=== PATIENT | female | born 1970 | race Two or more races ===

== ENCOUNTER 2020-09-27 11:10 | Outpatient (REF) | payer OTHER, SELFPAY | END 2020-09-27 11:11 | disposition home or self-care (01) | LOC: HO.LAB 11:10 | PROVIDERS: Visit Provider Internal Medicine | DX: Z20.828 Contact with and (suspected) exposure to other viral communicable diseases (principal) | CPT/HCPCS: 87635 ==

== ENCOUNTER 2020-10-13 12:46 | Outpatient (REF) | payer OTHER, SELFPAY | END 2020-10-13 12:47 | disposition home or self-care (01) | LOC: HO.LAB 12:46 | PROVIDERS: Visit Provider Internal Medicine | DX: Z20.828 Contact with and (suspected) exposure to other viral communicable diseases (principal) | CPT/HCPCS: C9803; U0003 ==

== ENCOUNTER 2021-03-08 12:50 | Outpatient (REF) | payer OTHER, SELFPAY ==
[2021-03-08 13:13] LABS: COVID-19 Test Negative (Negative); IDNOW Serial# 08D9AD1C
== END 2021-03-08 12:51 | disposition home or self-care (01) ==
LOC: HO.LAB 12:50
PROVIDERS: Visit Provider Internal Medicine
DX: Z20.822 Contact with and (suspected) exposure to COVID-19 (principal)
CPT/HCPCS: 36415; 87635; C9803

== ENCOUNTER 2022-09-14 08:45 | Outpatient (REF) | payer OTHER, SELFPAY ==
--- NOTE | ~2022-09-14 | XR_ITS ---
EXAMINATION: XR LUMBOSACRAL SPINE WITH OBLIQUES CLINICAL INFORMATION: Low back pain COMPARISON: None TECHNIQUE: AP, both oblique, and lateral views of the lumbar spine. Lateral view of the lumbosacral junction. FINDINGS: There is normal lumbar lordosis. The vertebral heights, alignment and disc heights are normal. No visible acute fracture, dislocation or lytic process seen. There is mild left lateral spondylosis L3-L4 disc level and minimal ventral spondylosis. No acute fracture, lytic or sclerotic process seen. The SI joints are symmetrical and normal. 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 XR/XR lumbar spine 4V min IMPRESSION: 1. Mild left lateral spondylosis L3-L4 disc level and mild ventral spondylosis throughout lumbar spine. No visible acute fracture, dislocation or lytic process seen. 2. 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
[2022-09-14 11:25] LABS: MANUAL DIFF FLAG NO
[2022-09-14 11:43] LABS: Basophils Absolute Auto 0.1 X10*3/uL (0.0-0.2); Basophils Percent Auto 0.9 % (0-2); Eosinophils Absolute Auto 0.1 X10*3/uL (0.0-0.4); Eosinophils Percent Auto 1.4 % (0-4); Hematocrit 40.5 % (37.0-47.0); Hemoglobin 13.4 g/dl (12.0-16.0); Imm Gran Abs Auto 0.01 X10*3/uL (0.00-0.03); Imm Gran Pct Auto 0.2 % (0.0-0.4); Lymphocytes Absolute Auto 1.7 X10*3/uL (1.2-4.9); Lymphocytes Percent Auto 29.2 % (20-40); Mean Corpuscular HGB Conc 33.1 g/dl (31.0-35.0); Mean Corpuscular Hemoglobin 29.6 pg (27.0-33.0); Mean Corpuscular Volume 89.4 fL (80.0-98.0); Mean Platelet Volume 10.8 fL (9.4-12.3); Monocytes Absolute Auto 0.4 X10*3/uL (0.1-1.2); Monocytes Percent Auto 6.8 % (2-11); Neutrophils Absolute Auto 3.5 x10*3/uL (2.0-8.3); Neutrophils Percent Auto 61.5 % (45-73); Platelet Count 255 X10*3/uL (160-400); Red Blood Count 4.53 X10*6/uL (4.20-5.50); Red Cell Distribution Width 13.1 % (11.0-16.0); White Blood Count 5.8 X10*3/uL (4.8-10.8)
[2022-09-14 12:22] LABS: Alanine Aminotransferase 19 U/L (0-31); Albumin Level 4.5 g/dL (3.5-5.0); Alkaline Phosphatase 71 U/L (39-117); Anion Gap 14 (12-20); Aspartate Amino Transferase 23 U/L (5-31); Bilirubin Total 1.5 mg/dL (0.0-1.0); Blood Urea Nitrogen 19 mg/dL (9-16); Calcium 9.5 mg/dL (8.4-10.2); Carbon Dioxide 26 mmol/L (22-29); Chloride 104 mmol/L (96-108); Cholesterol 258 mg/dL; Estimated Glomerular Filt Rate > 60; Glucose Fasting 119 mg/dL (60-99); HDL Cholesterol 59 mg/dL; LDL Cholesterol Calculated 173 mg/dl; Potassium 4.1 mmol/L (3.3-5.1); Sodium 140 mmol/L (135-145); Total Protein 7.4 g/dL (6.5-8.0); Triglycerides 132 mg/dL
[2022-09-14 12:23] LABS: Vitamin D 25-OH Total 37.6 ng/mL (>30)
[2022-09-14 12:29] LABS: Folate 17.2 ng/mL (> or = 4.0); Vitamin B12 935 pg/mL (200-900)
== END 2022-09-14 08:46 | disposition home or self-care (01) ==
LOC: HO.HMGCLDS 08:45
PROVIDERS: PCP Nurse Practitioner Family; Visit Provider Nurse Practitioner Family
DX: M54.50 Low back pain, unspecified (principal); Z76.89 Persons encountering health services in other specified circumstances
CPT/HCPCS: 36415; 72110; 80053; 80061; 82306; 82607; 82746; 84443; 85025

== ENCOUNTER 2022-10-22 16:00 | Outpatient (RCR) | payer OTHER, SELFPAY ==
--- NOTE | 2022-10-15 15:24 | MHC.PT.EP ---
[facility] [place] Office [place] Office [place] Office [address] Nelda Moser [address] [phone] F: [phone] F: [phone] F: [phone] F: [phone] Physical Therapy Plan of Care Date of Evaluation: Date of Surgery: Diagnosis: Low back pain Assessment: Patient is 52 y.o female who is referred by MYRIAM Sandoval, to PT with Dx of LBP. She presents as chronic LBP with sprain/strain and weak core/abdominals due to abdominal surgery and prolonged use of abdominal brace/binder. 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 She will benefit from skilled and monitored PT to restore aforementioned impairments. Frequency and Duration: The patient will be seen 2x/week for 4 weeks Short Term Goals: 2 weeks Patient is able to demonstrate consistency and independence with HEP to self manage chronic symptoms Patient is able to progress more core/TA strengthening progressions in supine, seated, quadruped and standing to improve endurance at work to discontinue use of abdominal brace/binder. Cma Goals: 4 weeks Patient presents with increased lumbar flexion 90 degrees to restore mobility with bending at work. Patient presents with increased hip flexion strength 5/5 to be able to perform squats for work tasks. Treatment Plan: Modalities to reduce pain, spasms and effusion. Manual therapy to restore motion and function. Therapeutic exercise to improve strength and flexibility. Neuromuscular re-education for posture and balance. Therapeutic activities to return to functional activities of daily living. Electronically signed by: Otto Serna, PT, DPT Please sign and return to therapist. Thank you for your referral.
--- NOTE | 2022-11-29 11:38 | MHC.PT.DC ---
[facility] [place] Office [place] Office [place] Office [address] Nelda Moser [address] [phone] F: [phone] F: [phone] F: [phone] F: [phone] Physical Therapy Discharge Report Diagnosis: Low back pain Date of Surgery: Date of Evaluation: 10/15/22 Date of Discharge: 11/29/22 Treatments to Date: 2 Cancellations to Date: 4 No Shows to Date: 2 Discharge Status: Visit Non-compliance Discharge Summary: Patient ceased attending visits on her own accord as of 10/22/22. Therefore she is discharged from PT at this time. Electronically signed by: Otto Serna, PT, DPT Please sign and return to therapist. Thank you for your referral.
== END 2022-11-29 11:39 | disposition home or self-care (01) ==
LOC: HO.PTCHIC 16:00
PROVIDERS: PCP Nurse Practitioner Family; Visit Provider Nurse Practitioner Family
DX: M54.50 Low back pain, unspecified (principal)
CPT/HCPCS: 97110; 97161

== ENCOUNTER 2022-11-27 14:55 | Outpatient (REF) | payer OTHER, SELFPAY ==
[2022-11-27 15:42] LABS: MANUAL DIFF FLAG NO
[2022-11-27 16:22] LABS: Basophils Absolute Auto 0.1 X10*3/uL (0.0-0.2); Basophils Percent Auto 0.9 % (0-2); Eosinophils Absolute Auto 0.1 X10*3/uL (0.0-0.4); Eosinophils Percent Auto 1.2 % (0-4); Hematocrit 39.4 % (37.0-47.0); Hemoglobin 12.9 g/dl (12.0-16.0); Imm Gran Abs Auto 0.01 X10*3/uL (0.00-0.03); Imm Gran Pct Auto 0.2 % (0.0-0.4); Lymphocytes Absolute Auto 2.4 X10*3/uL (1.2-4.9); Lymphocytes Percent Auto 35.8 % (20-40); Mean Corpuscular HGB Conc 32.7 g/dl (31.0-35.0); Mean Corpuscular Hemoglobin 29.6 pg (27.0-33.0); Mean Corpuscular Volume 90.4 fL (80.0-98.0); Mean Platelet Volume 10.8 fL (9.4-12.3); Monocytes Absolute Auto 0.5 X10*3/uL (0.1-1.2); Monocytes Percent Auto 7.6 % (2-11); Neutrophils Absolute Auto 3.6 x10*3/uL (2.0-8.3); Neutrophils Percent Auto 54.3 % (45-73); Platelet Count 255 X10*3/uL (160-400); Red Blood Count 4.36 X10*6/uL (4.20-5.50); Red Cell Distribution Width 13.1 % (11.0-16.0); White Blood Count 6.6 X10*3/uL (4.8-10.8)
[2022-11-27 16:42] LABS: Estimated Average Glucose 111 mg/dL; Hemoglobin A1c % 5.5 %
[2022-11-27 16:49] LABS: Alanine Aminotransferase 14 U/L (0-31); Albumin Level 4.2 g/dL (3.5-5.0); Alkaline Phosphatase 73 U/L (39-117); Anion Gap 9 (12-20); Aspartate Amino Transferase 15 U/L (5-31); Bilirubin Total 1.1 mg/dL (0.0-1.0); Blood Urea Nitrogen 11 mg/dL (9-16); Calcium 9.4 mg/dL (8.4-10.2); Carbon Dioxide 32 mmol/L (22-29); Chloride 105 mmol/L (96-108); Estimated Glomerular Filt Rate > 60; Glucose Random 109 mg/dL (60-115); Potassium 4.3 mmol/L (3.3-5.1); Sodium 142 mmol/L (135-145); Total Protein 6.9 g/dL (6.5-8.0)
== END 2022-11-27 14:56 | disposition home or self-care (01) ==
LOC: HO.LAB 14:55
PROVIDERS: PCP Nurse Practitioner Family; Visit Provider Surgery
DX: K46.9 Unspecified abdominal hernia without obstruction or gangrene (principal); E66.3 Overweight; R73.01 Impaired fasting glucose
CPT/HCPCS: 36415; 80053; 83036; 84134; 85025; 99202

== ENCOUNTER 2022-12-10 16:20 | Outpatient (REF) | payer OTHER, SELFPAY ==
--- NOTE | ~2022-12-10 | CT_ITS ---
EXAMINATION: CT ABDOMEN AND PELVIS WITHOUT CONTRAST CLINICAL INFORMATION: Unspecified abdominal hernia without obstruction or gangrene COMPARISON: None. TECHNIQUE: Multidetector volumetric imaging was performed from the lung bases through the pubic symphysis. Sagittal and coronal reformatted images were obtained on the technologist workstation. This CT examination was performed using dose optimization techniques as appropriate, variously including the following: *Automated exposure control *Adjustment of mA and/or kV according to patient size (this includes techniques or standardized protocols for targeted exams where dose is matched to indication/reason for exam; i.e. extremities or head) *Use of iterative reconstruction technique FINDINGS: The lack of intravenous contrast limits evaluation of the solid visceral organs including the liver, spleen, pancreas, and kidneys. LUNG BASES: The visualized lung bases are unremarkable. LIVER, GALLBLADDER, AND BILIARY TREE: Limited non-contrast evaluation is normal. No gross focal hepatic lesion. Normal liver size and contour. No gross biliary ductal dilation. Status post cholecystectomy. PANCREAS: Limited non-contrast evaluation is normal. No shelly-pancreatic fluid. SPLEEN: Limited non-contrast evaluation is normal. ADRENAL GLANDS: Normal; no adrenal mass. KIDNEYS AND URETERS: Limited non-contrast evaluation is normal. No hydronephrosis, hydroureter, or calculi seen. No perinephric stranding. GASTROINTESTINAL TRACT: Small bowel and colon are non-dilated. No bowel wall thickening. No pericolonic inflammatory changes to suggest colitis or diverticulitis. ABDOMINAL WALL: No hernia seen. LYMPH NODES: No pathologically enlarged lymph nodes in the abdomen or pelvis. VASCULAR: Normal caliber abdominal aorta. BLADDER: Unremarkable. PELVIC VISCERA: Normal noncontrast appearance of the uterus and ovaries. OSSEOUS STRUCTURES: No acute or suspicious osseous abnormalities. CT/CT abdomen pelvis wo IV con IMPRESSION: No acute CT findings. No evidence of bowel obstruction.
== END 2022-12-10 16:21 | disposition home or self-care (01) ==
LOC: HO.CT 16:20
PROVIDERS: PCP Nurse Practitioner Family; Visit Provider Surgery
DX: K46.9 Unspecified abdominal hernia without obstruction or gangrene (principal); E66.3 Overweight; R73.01 Impaired fasting glucose
CPT/HCPCS: 74176

== ENCOUNTER → 2022-12-25 10:10 | Outpatient (BNVA) | payer OTHER, SELFPAY | PROVIDERS: Visit Provider Surgery | DX: K43.2 Incisional hernia without obstruction or gangrene (principal); E78.5 Hyperlipidemia, unspecified | CPT/HCPCS: 99212 ==

== ENCOUNTER → 2023-01-15 10:15 | Outpatient (BNVA) | payer OTHER, SELFPAY | PROVIDERS: PCP Nurse Practitioner Family; Visit Provider Surgery | DX: K43.2 Incisional hernia without obstruction or gangrene (principal); K46.9 Unspecified abdominal hernia without obstruction or gangrene; E66.3 Overweight; E78.5 Hyperlipidemia, unspecified; Z98.890 Other specified postprocedural states; Z68.28 Body mass index [BMI] 28.0-28.9, adult | CPT/HCPCS: 99212 ==

== ENCOUNTER 2023-02-14 06:37 | Day surgery (SDC) | payer OTHER, SELFPAY ==
[2023-02-08 14:12] VITALS: BMI 28.0
--- NOTE | 2023-02-13 09:22 | HO.ANESPROP2 ---
Documented by User: Jeanne Lovett NP 02/13/23 09:28 HPI - Anesthesia Eval Consult details Narrative: 52yo F for Hernia Repair Ventral Laparoscopic with mesh PMFSH Active Problems Active Problems: All Active Problems (Updated 02/08/23 @ 13:53 by Brittanie Granados, BIBI) Lower back pain (Acute) Tendinitis (Acute) Migraines (Acute) Hyperbilirubinemia (Acute) Elevated fasting glucose (Acute) Hyperlipidemia (Acute) Adult general medical exam (Acute) Abdominal hernia (Acute) Overweight (Acute) Screening for breast cancer (Acute) Incisional hernia (Acute) H/O abdominal surgery (Acute) Past Medical History Medical History Back pain Elevated cholesterol Encounter to establish care Migraine Obesity Family History Family History Mother No problems noted. 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 Cognitive needs: No Hearing needs: No Vision needs: Yes (glasses ) Meds Allergies Allergy/AdvReac Type Severity Reaction Status Date / Time No Known Allergies Allergy Verified 01/15/23 10:31 Home Medications Medication Instructions Recorded Confirmed Last Taken Type acetaminophen 325 mg tablet 650 mg PO Q6H PRN 09/12/22 01/15/23 Unknown History (Tylenol) Exam Exam Date and Time: February 13, 2023 0922 Height,Weight and Vital Signs: Height 5 ft 2 in Weight 69.672 kg Pertinent Lab Results Pertinent Lab Results: Laboratory Tests 11/27/22 11/27/22 15:38 15:38 WBC 6.6 Hgb 12.9 Hct 39.4 Plt Count 255 Sodium 142 Potassium 4.3 Chloride 105 Carbon Dioxide 32 H BUN 11 Creatinine 0.78 Assessment and Plan Assessment Anesthesia Assessment: Chart Reviewed Documented by User: Jerome Mccabe MD 02/14/23 11:03 PMFSH Past Medical History Medical History Back pain Elevated cholesterol Encounter to establish care Migraine Obesity Family History Family History Mother No problems noted. 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 Cognitive needs: No Hearing needs: No Vision needs: Yes (glasses ) Meds Allergies Allergy/AdvReac Type Severity Reaction Status Date / Time No Known Allergies Allergy Verified 01/15/23 10:31 Home Medications Medication Instructions Recorded Confirmed Last Taken Type acetaminophen 325 mg tablet 650 mg PO Q6H PRN 09/12/22 01/15/23 Unknown History (Tylenol) Exam Airway Mallampati Class: II TM Dist: >3cm Neck ROM: Full Loose/Missing/Broken Teeth: No Heart: ok Lungs: ok Assessment and Plan Assessment Anesthesia Assessment: Anesthesia Plan Discussed Final Anesthetic Review Family History of Problems with Anesthesia: No History of Problems with Anesthesia: No NPO: Yes ASA Class: II Final Preanesthetic Review: No Changes in Pt Med Stat, Meds/Allgs Chart Reviewed, Consent Obtained/Reviewed and Anes Risks/Benef Reviewed Patient Risk: Low Procedure Risk: Intermediate Anesthetic Plan Anesthetic Plan: GA and Agree w/ Assess. and Plan Disposition: Standard PACU
[2023-02-14] VITALS (19 sets, daily range): BP systolic 108–127; BP diastolic 59–74; PULSE 60–85; RESP 12–18; TEMP 36.3–37; O2SAT 89–100
[2023-02-14] MEDS: Lactated Ringers 1,000 ML 100 ML IVCONT (07:41)
--- NOTE | 2023-02-14 08:05 | PC.NURSE ---
IV attempt by author. Insertion by sea trammell rn
--- NOTE | 2023-02-14 08:12 | MHC.SHP ---
Pre-Procedural Eval Section A Date of Service: 02/14/23 The patient is an INPATIENT: No The History & Physical has been completed within 30 days and I have reviewed it.: Yes Section B Chief Complaint: Incisional hernia without obstruction or gangrene Allergies: Allergies Allergy/AdvReac Type Severity Reaction Status Date / Time No Known Allergies Allergy Verified 01/15/23 10:31 Plan I have reviewed the history and physical and performed a pertinent physical examination on my patient. No changes have occurred unless specified. Time Spent With Patient Time: Total time managing care of this patient today ____ minutes.
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
[2023-02-14] MEDS: fentaNYL citrate/PF 100 MCG/2 ML VIAL 50 MCG IVPUSH ×4 (10:57→11:25)
[2023-02-14] MEDS: oxyCODONE HCl Immed Release 5 MG TABLET 10 MG PO (11:12)
[2023-02-14] MEDS: Acetaminophen 325 MG TABLET 650 MG PO (11:23)
[2023-02-14] MEDS: ondansetron HCL 4 MG/2 ML VIAL IVPUSH (12:32)
== END 2023-02-14 14:43 | disposition home or self-care (01) ==
PROVIDERS: PCP Nurse Practitioner Family; Visit Provider Surgery
PROC: 0WQF4ZZ Repair Abdominal Wall, Percutaneous Endoscopic Approach (ICD-10-PCS; CPT 49593; principal; 2023-02-14 08:30)
DX: K43.2 Incisional hernia without obstruction or gangrene (principal); K46.9 Unspecified abdominal hernia without obstruction or gangrene; K66.0 Peritoneal adhesions (postprocedural) (postinfection); M54.9 Dorsalgia, unspecified; E78.5 Hyperlipidemia, unspecified; E66.3 Overweight; Z68.28 Body mass index [BMI] 28.0-28.9, adult; Z90.49 Acquired absence of other specified parts of digestive tract; Z98.890 Other specified postprocedural states
CPT/HCPCS: 49593; 49329; C1781; J0690; J1885; J2250; J2405; J2550; J3010

== ENCOUNTER → 2023-02-22 09:27 | Outpatient (BNVA) | payer OTHER, SELFPAY | PROVIDERS: PCP Nurse Practitioner Family; Referring Provider Nurse Practitioner Family; Visit Provider Surgery ==

== ENCOUNTER 2023-05-23 09:15 | Outpatient (REF) | payer OTHER, SELFPAY ==
[2023-05-23 11:17] LABS: Estimated Average Glucose 111 mg/dL; Hemoglobin A1c % 5.5 %
[2023-05-23 12:26] LABS: Alanine Aminotransferase 12 U/L (0-31); Albumin Level 4.3 g/dL (3.5-5.0); Alkaline Phosphatase 70 U/L (39-117); Anion Gap 10 (12-20); Aspartate Amino Transferase 16 U/L (5-31); Bilirubin Total 2.4 mg/dL (0.0-1.0); Blood Urea Nitrogen 16 mg/dL (9-16); Calcium 9.1 mg/dL (8.4-10.2); Carbon Dioxide 27 mmol/L (22-29); Chloride 110 mmol/L (96-108); Cholesterol 277 mg/dL; Estimated Glomerular Filt Rate > 60; Glucose Fasting 99 mg/dL (60-99); HDL Cholesterol 67 mg/dL; LDL Cholesterol Calculated 184 mg/dl; Potassium 3.7 mmol/L (3.3-5.1); Sodium 143 mmol/L (135-145); Total Protein 7.6 g/dL (6.5-8.0); Triglycerides 130 mg/dL
== END 2023-05-23 09:16 | disposition home or self-care (01) ==
LOC: HO.LAB 09:15
PROVIDERS: Visit Provider Nurse Practitioner Family
DX: E78.5 Hyperlipidemia, unspecified (principal); R73.01 Impaired fasting glucose
CPT/HCPCS: 36415; 80053; 80061; 83036

== ENCOUNTER 2023-07-08 15:50 | Outpatient (AMB) | payer OTHER, SELFPAY ==
--- NOTE | 2023-07-08 15:58 | AM.OFFVISNUR ---
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
== END 2023-07-08 16:04 | disposition home or self-care (01) ==
PROVIDERS: PCP Nurse Practitioner Family; Visit Provider Nurse Practitioner Family
DX: Z11.1 Encounter for screening for respiratory tuberculosis (principal)
CPT/HCPCS: 86580

== ENCOUNTER 2023-07-31 15:38 | Outpatient (REF) | payer OTHER, SELFPAY | END 2023-07-31 15:39 | disposition home or self-care (01) | LOC: HO.MAMMO 15:38 | PROVIDERS: PCP Nurse Practitioner Family; Visit Provider Nurse Practitioner Family | DX: Z12.31 Encounter for screening mammogram for malignant neoplasm of breast (principal) | CPT/HCPCS: 77063; 77067 ==

== ENCOUNTER → 2023-07-31 15:45 | Outpatient (BNV) | payer OTHER, SELFPAY | PROVIDERS: PCP Nurse Practitioner Family; Visit Provider Radiology Diagnostic Radiology | DX: Z12.31 Encounter for screening mammogram for malignant neoplasm of breast (principal) | CPT/HCPCS: 77063; 77067 ==

== ENCOUNTER 2023-09-26 15:37 | Outpatient (AMB) | payer OTHER, SELFPAY ==
--- NOTE | 2023-09-26 15:42 | AM.OFFVISNUR ---
Intake Intake Visit Reasons: Flu Vaccines Allergies No Known Allergies Allergy (Verified 05/15/23 14:30) Office Procedures Flu Questionnaire Does the patient have a severe egg allergy?: No Does the patient have severe life threatening allergies?: No Does the patient have a fever or illness today?: No Has the patient ever had Guillain-[place] Syndrome?: No Has the patient ever had any past reaction to a flu shot?: No Immunizations flu vacc [id number] 6mos up(PF) 60 mcg(15 mcgx4)/0.5 mL IM syringe Performing Provider: MYRIAM Sandoval Performing Location: [facility] Administered by: Ting Varner RN on 09/26/23 15:48 Dose Route Admin Location Dispensed Lot Number Expiration Date NDC Editorial Intern 0.5 mL IM Left Deltoid 0.5 mL [id number] 05/31/24 [id number] [employer] VIS Given Date VIS Provided VIS Publication Date 09/26/23 Single Vaccine 21 Eligibility Eligibility Date Funding Source Not [facility] Eligible 09/26/23 Private Coding Assessment & Plan Assessment & Plan Orders: Orders Influenza [id number] Immunization Today Z23 - Encounter for immunization
== END 2023-09-26 15:49 | disposition home or self-care (01) ==
PROVIDERS: PCP Nurse Practitioner Family; Visit Provider Nurse Practitioner Family
DX: Z23 Encounter for immunization (principal)
CPT/HCPCS: 90471; 90686

== ENCOUNTER 2023-10-17 08:21 | Outpatient (REF) | payer OTHER, SELFPAY ==
--- NOTE | ~2023-10-17 | XR_ITS ---
EXAMINATION: XR HAND, RIGHT CLINICAL INFORMATION: Pain. COMPARISON: None available. TECHNIQUE: PA, lateral, and oblique views of the right hand. FINDINGS: The bones and soft tissues are normal. No fracture. Alignment is anatomic. Joint spaces are maintained. No erosions or soft tissue calcifications. XR/XR hand RT min 3V IMPRESSION: Normal right hand.
== END 2023-10-17 08:22 | disposition home or self-care (01) ==
LOC: HO.HOSX 08:21
PROVIDERS: Visit Provider Physician Assistant
DX: G56.01 Carpal tunnel syndrome, right upper limb (principal)
CPT/HCPCS: 73130; 99202

== ENCOUNTER 2023-10-17 10:38 | Outpatient (AMB) | payer OTHER, SELFPAY ==
--- NOTE | 2023-10-17 10:52 | A.OFFVIS_ITS ---
Intake Vital Signs 10/17/23 11:01 Height 5 ft 2 in Weight 153 lb BMI 28.0 Intake Visit Reasons: EAR FLAP BINDER-Pain in right hand Intake Note: Fransisca wilder 53 year old right hand dominant female presents today as a new patient for an evaluation of right hand. Patient reports on and off pain for about 2 years, states pain comes at night when sleeping. She was previously seen by a hand specialist where OT was ordered and brace given. Numbness and tingling in her hand and fingers. Finds some relief with Tylenol, ibuprofen and topical cream. Allergies No Known Allergies Allergy (Verified 10/17/23 11:00) HPI EAR FLAP BINDER-Pain in right hand HPI Details 53-year-old right hand dominant female bj barrett presents to the office today for evaluation of right-hand pain for about 2 years. She states she has intermittent pain in her right hand which is aggravated at night when sleeping. She also c/o numbness, tingling and occasional weakness in her fingers. She was seen by a hand specialist in the past who ordered occupational therapy and placed her in a brace. She finds mild relief with Tylenol, ibuprofen and topical cream. 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 [facility] Medical History Back pain Elevated cholesterol Encounter to establish care Migraine Obesity Surgical History History of incisional hernia repair History of colonoscopy History of cholecystectomy H/O abdominal surgery Family History Mother No problems noted. 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 Cognitive needs: No Hearing needs: No Vision needs: Yes (glasses ) Review of Systems Const All systems reviewed & are unremarkable except as noted in HPI and below Physical Exam Vital Signs: BMI result Body Mass Index 28.0 Const General: cooperative, healthy appearing, comfortable, no acute distress, well developed and alert Orientation/consciousness: patient oriented x3 HEENT Head: Yes normal to inspection, Yes normocephalic and Yes atraumatic Eyes General: appearance normal, both eyes and all related structures Resp Effort & Inspection: normal respiratory effort and able to speak in complete sentences Cardio Rate: regular rate Peripheral pulses: Peripheral pulses 2+ throughout GI Palpation (GI): Soft to palpation Skin Lesions: no lesions Rashes: no rashes Neuro General: patient oriented x3 Extrem Other: Right wrist: Normal to inspection. Tenderness over the carpal canal. Numbness and tingling over the median nerve distribution of the right hand. Able to make a full fist and fully extend all fingers. Positive Tinel's. Assessment & Plan Assessment & Plan (1) Carpal tunnel syndrome on right: Code(s): G56.01 - Carpal tunnel syndrome, right upper limb Plan An EMG/nerve conduction study order had been placed. She was also fit for a Velcro wrist splint to be worn at night. She will see me back once the nerve study is complete. Orders: Orders XR hand RT min 3V 10/17/23 M79.641 - Pain in right hand NE electromyogram (EMG) 10/17/23 R20.0 - Anesthesia of skin, R20.2 - Paresthesia of skin NE nerve conduction velocity 10/17/23 R20.0 - Anesthesia of skin, R20.2 - Paresthesia of skin Patient Instructions: Scribed for Caden Gr PA-C, by Fidel Frausto medical microbiologist, on 10/17/2023 at 11:00 AM EST. I, Caden Gr PA-C, have personally reviewed and agree with the information entered by the scribe. Coding Level of Care Code New Pt Level 3 (46450) Diagnoses Carpal tunnel syndrome on right G56.01
[2023-10-17 11:01] VITALS: BMI 28.0
== END 2023-10-17 11:18 | disposition home or self-care (01) ==
PROVIDERS: PCP Nurse Practitioner Family; Visit Provider Physician Assistant
DX: G56.01 Carpal tunnel syndrome, right upper limb (principal)
CPT/HCPCS: 99203

== ENCOUNTER 2023-11-19 13:35 | Outpatient (AMB) | payer OTHER, SELFPAY ==
[2023-11-19 13:37] VITALS: BP 96/64; PULSE 68; O2SAT 99; BMI 28.5
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
== END 2023-11-19 14:09 | disposition home or self-care (01) ==
PROVIDERS: Visit Provider Nurse Practitioner Family
DX: M54.50 Low back pain, unspecified (principal); E78.5 Hyperlipidemia, unspecified; R73.01 Impaired fasting glucose; E80.6 Other disorders of bilirubin metabolism; E66.3 Overweight; N39.41 Urge incontinence; Z00.00 Encounter for general adult medical examination without abnormal findings; G43.909 Migraine, unspecified, not intractable, without status migrainosus
CPT/HCPCS: 99396

== ENCOUNTER 2023-11-22 08:31 | Outpatient (REF) | payer OTHER, SELFPAY ==
[2023-11-22 08:43] LABS: MANUAL DIFF FLAG NO
[2023-11-22 08:50] LABS: Basophils Percent Auto 0.7 % (0-2); Eosinophils Absolute Auto 0.1 X10*3/uL (0.0-0.4); Eosinophils Percent Auto 1.5 % (0-4); Hematocrit 41.9 % (37.0-47.0); Hemoglobin 13.7 g/dl (12.0-16.0); Imm Gran Abs Auto 0.01 X10*3/uL (0.00-0.03); Imm Gran Pct Auto 0.2 % (0.0-0.4); Lymphocytes Absolute Auto 1.8 X10*3/uL (1.2-4.9); Lymphocytes Percent Auto 33.8 % (20-40); Mean Corpuscular HGB Conc 32.7 g/dl (31.0-35.0); Mean Corpuscular Hemoglobin 30.3 pg (27.0-33.0); Mean Corpuscular Volume 92.7 fL (80.0-98.0); Mean Platelet Volume 10.5 fL (9.4-12.3); Monocytes Absolute Auto 0.4 X10*3/uL (0.1-1.2); Neutrophils Absolute Auto 3.1 x10*3/uL (2.0-8.3); Neutrophils Percent Auto 56.8 % (45-73); Platelet Count 240 X10*3/uL (160-400); Red Blood Count 4.52 X10*6/uL (4.20-5.50); Red Cell Distribution Width 12.9 % (11.0-16.0); White Blood Count 5.4 X10*3/uL (4.8-10.8)
[2023-11-22 09:49] LABS: Alanine Aminotransferase 15 U/L (0-31); Albumin Level 4.3 g/dL (3.5-5.0); Alkaline Phosphatase 65 U/L (39-117); Anion Gap 13 (12-20); Aspartate Amino Transferase 19 U/L (5-31); Bilirubin Direct 0.5 mg/dL (0.0-0.5); Bilirubin Total 1.9 mg/dL (0.0-1.0); Blood Urea Nitrogen 15 mg/dL (9-16); Calcium 9.5 mg/dL (8.4-10.2); Carbon Dioxide 26 mmol/L (22-29); Chloride 106 mmol/L (96-108); Cholesterol 275 mg/dL (<200); Estimated Glomerular Filt Rate > 60; Glucose Fasting 117 mg/dL (60-99); HDL Cholesterol 63 mg/dL (>40); LDL Cholesterol Calculated 183 mg/dL (<100); Potassium 3.8 mmol/L (3.3-5.1); Sodium 141 mmol/L (135-145); TSH reflex Free T4 1.01 uIU/mL (0.32-4.0); Total Protein 7.5 g/dL (6.5-8.0); Triglycerides 145 mg/dL (<150)
== END 2023-11-22 08:32 | disposition home or self-care (01) ==
LOC: HO.LAB 08:31
PROVIDERS: PCP Nurse Practitioner Family; Visit Provider Nurse Practitioner Family
DX: Z00.00 Encounter for general adult medical examination without abnormal findings (principal); E80.6 Other disorders of bilirubin metabolism; E78.5 Hyperlipidemia, unspecified; R73.01 Impaired fasting glucose
CPT/HCPCS: 36415; 80053; 80061; 80076; 82306; 84443; 85025

== ENCOUNTER 2023-12-06 08:36 | Outpatient (REF) | payer OTHER, SELFPAY | END 2023-12-06 08:37 | disposition home or self-care (01) | LOC: HO.NEURO 08:36 | PROVIDERS: PCP Nurse Practitioner Family; Visit Provider Physician Assistant | DX: R20.0 Anesthesia of skin (principal); R20.2 Paresthesia of skin | CPT/HCPCS: 95908 ==

== ENCOUNTER → 2023-12-06 08:39 | Outpatient (BNV) | payer OTHER, SELFPAY | PROVIDERS: PCP Nurse Practitioner Family; Visit Provider Physical Medicine & Rehabilitation | DX: G56.01 Carpal tunnel syndrome, right upper limb (principal) | CPT/HCPCS: 95908 ==

== ENCOUNTER 2023-12-17 13:37 | Outpatient (REF) | payer OTHER, SELFPAY ==
[2023-12-18 09:30] LABS: Mumps Virus IgG Antibody >300.00 AU/mL; Rubella IgG Antibody 1.25 Index; Rubeola IgG (Measles) >300.00 AU/mL
== END 2023-12-17 13:38 | disposition home or self-care (01) ==
LOC: HO.LAB 13:37
PROVIDERS: PCP Internal Medicine; Visit Provider Nurse Practitioner Family
DX: Z01.84 Encounter for antibody response examination (principal)
CPT/HCPCS: 36415; 86735; 86762; 86765; 86787

== ENCOUNTER 2023-12-26 15:29 | Outpatient (AMB) | payer OTHER, SELFPAY ==
--- NOTE | 2023-12-26 15:30 | A.OFFPC_ITS ---
Vital Signs 12/26/23 15:33 Height 5 ft 2 in Weight 156 lb 6 oz BMI 28.6 BP 118/62 Blood Pressure Location Lt brachial Position Sitting Intake Visit Reasons: Abnormal lab results Intake Note: Patient is here to follow up on abnormal labs results. 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 Gas Cutter: Not Required per policy Accompanied by: Self / Same As Patient Allergies No Known Allergies Allergy (Verified 12/27/23 09:41) Medication List - Last Reconciled 12/27/23 by Marco A Najera MD acetaminophen (Tylenol) 650 mg PO Q6H PRN atorvastatin 10 mg PO BEDTIME diclofenac sodium 1% (Aleve (diclofenac)) 2 grams topical QID PRN ibuprofen 600 mg PO Q8H PRN Tobacco use date assessed: 12/26/23 Dental Screening Dental Screen Date: 12/26/23 Did you have a dental visit in the last 12 months?: No Did you have a dental problem in the last 6 months where you did not have access to dental care?: No Was dental information given to patient?: Patient has dentist HPI Abnormal lab results HPI Details 53-year-old female presents to the offic e to discuss her chronic medical conditions. I will be assuming her care as her previous provider has left the practice. Patient had routine blood work done a month ago and elevated cholesterol was found. Patient has not been on any medications. She has a family history of hyper cholesterolemia. Patient not exercising or following any particular diet. She works 3 jobs and has a very busy work schedule. Nonsmoker. [facility] Medical History (Updated 12/27/23 @ 10:00 by Marco A Najera MD) Hypercholesterolemia Back pain Migraine Elevated cholesterol Obesity Surgical History History of incisional hernia repair History of colonoscopy History of cholecystectomy H/O abdominal surgery Family History Mother No problems noted. 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 1. Little interest or pleasure in doing things: not at all 2. Feeling down, depressed, or hopeless: not at all 3. Trouble falling or staying asleep, or sleeping too much: not at all 4. Feeling tired or having little energy: not at all 5. Poor appetite or overeating: not at all 6. Feeling bad about yourself - or that you are a failure or have let yourself or your family down: not at all 7. Trouble concentrating on things, such as reading the newspaper or watching television: not at all 8. Moving or speaking so slowly that other people could have noticed. Or the opposite - being so fidgety or restless that you have been moving around a lot more than usual: not at all 9. Thoughts that you would be better off or of hurting yourself in some way: not at all Total score: 0 Depression Screening Interpretation: Negative Depression Screening Done: Yes Source: Developed by Drs. Amandeep Santamaria, Selam Scott, Wojciech Mccall and colleagues, with an educational artem from [employer] ([employer] Thrive Questionnaire Date Thrive assessed: 12/26/23 I am a: Patient What is your living situation today?: I have a steady place to live Within the past 12 months, did the food you bought not last and you didn't have the money to get more?: Never true Within the past 12 months, did you worry whether your food would run out before you got money to buy more?: Never true Do you have trouble paying for medicines?: No Do you have trouble getting transportation to medical appointments?: No Do you have trouble paying your heating and electricity bill?: No Do you have trouble taking care of your child, family member or friend?: No Do you have trouble with day-to-day activities such as bathing, preparing meals, shopping, managing finances, etc.?: No Are you currently unemployed and looking for a job?: No Are you interested in more education?: No Currently or been in a relationship where the following occur: no concerns reported THRIVE Score: 0 AUDIT C Alcohol Use Questionnaire (AUDIT-C) 1. How often do you have a drink containing alcohol?: Never Total Score: 0 BRUNO-7 AMB Questionnaire BRUNO-7 Date BRUNO - 7 assessed: 12/26/23 Feeling nervous, anxious, or on edge: 0 = Not at all Not being able to stop or control worryin = Not at all Worrying too much about different things: 0 = Not at all Trouble relaxin = Not at all Being so restless that it is hard to sit still: 0 = Not at all Becoming easily annoyed or irritable: 0 = Not at all Feeling afraid as if something awful might happen: 0 = Not at all Total BRUNO-7 score (0-4 normal; 5-9 mild; 10-14 moderate; 15-21 severe): 0 Source: Developed by Drs. Amandeep Santamaria, Selam Scott, Wojciech Mccall and colleagues, with an educational artem from [employer] ([employer] Physical exam (Primary Care) Vital Signs: Last Vital Signs BP 118/62 12/26/23 15:33 Care Plan Goal for BP management: Blood pressure is in range. On no medications. BMI result Body Mass Index 28.6 Tobacco/Smoking Status: Tobacco use Status Tobacco use date assessed 12/26/23 12/26/23 15:37 Patient Tobacco Use Status Never used Tobacco 12/26/23 15:37 e-Cigarette/Vaping Use Never Used 12/26/23 15:37 PHQ-9: PHQ-9 Score PHQ-9: Total score 0 12/26/23 15:37 Depression Screening Interpretation: Negative Thrive Assessment: Date of Thrive Assessment Date Thrive assessed 12/26/23 12/26/23 15:37 Currently or been in a relationship where the following occur: no concerns reported Const General: cooperative and healthy appearing Nutritional Appearance: well nourished Orientation/consciousness: patient oriented x3 Limitations: no limitations HENMT Head: Yes normal to inspection Eyes General: appearance normal, both eyes and all related structures Neck Neck: Yes normal visual inspection Chest Chest palpation & inspection: normal palpation of entire chest wall Resp Effort & Inspection: normal respiratory effort Neuro General: patient oriented x3 Assessment and Plan Assessment & Plan (1) Hypercholesterolemia: Code(s): E78.00 - Pure hypercholesterolemia, unspecified Plan: Patient was advised to start statins. Atorvastatin at 10 mg a day has been initiated. Counseling on the importance of diet and exercise done. 15 minutes spent explaining hyper cholesterolemia. Medications: New atorvastatin 10 mg PO BEDTIME 90 tabs 1RF Coding Level of Care Code Est Pt Level 4 (72332) Diagnoses Hypercholesterolemia E78.00
[2023-12-26 15:33] VITALS: BP 118/62; BMI 28.6
== END 2023-12-26 16:00 | disposition home or self-care (01) ==
PROVIDERS: PCP Nurse Practitioner Family; Visit Provider Internal Medicine
DX: E78.00 Pure hypercholesterolemia, unspecified (principal)
CPT/HCPCS: 99214

== ENCOUNTER 2024-01-07 13:53 | Outpatient (AMB) | payer OTHER, SELFPAY ==
--- NOTE | 2024-01-07 13:55 | MHC.OFFVIS ---
Intake Intake Visit Reasons: Urge incontinence Intake Note: New Patient presents for initial visit for Urge Incontinence Urology Medications: None Blood Thinner: none PVR:19ml Senior Research Fellow Required: No Accompanied by: Self / Same As Patient Allergies No Known Allergies Allergy (Verified 01/07/24 20:55) Medication List - Last Reconciled 01/07/24 by ALICIA Almazan acetaminophen (Tylenol) 650 mg PO Q6H PRN atorvastatin 10 mg PO BEDTIME ibuprofen 600 mg PO Q8H PRN HPI HPI Comments History of Present Illness Details Fransisca is a pleasant 53-year-old female patient of Dr. Avina. She has a past medical history of hypercholesteremia, back pain, and migraines. She presents to the office today as a new patient for stress incontinence. In discussion with the patient today she reports symptoms to have been present for many years now. She reports having followed up with [facility] a few years ago for this exact issue at which time she attempted to undergo urodynamics however was unable to as she was experiencing anxiety and blood pressure issues. When asked she reports noting urinary leakage/stress incontinence with exercise and discusses at times being unable to make it to the bathroom without urinary leakage. She otherwise denies urinary urgency, urinary frequency, hematuria, dysuria, foul smelling urine, changes to urinary stream, flank pain, fever, and or chills. She does report nocturia 1-2 times per night. In office urinalysis results reviewed with the patient today. PVR 19 mL. Discussed at length potential causes for stress incontinence and urinary leakage. Discussed further treatment options with pelvic floor therapy, medications, and or further workup with in office cystoscopy and or urodynamics. She discusses at length that she does not feel urinary symptoms are bothersome enough to take a medication. She discusses feeling like she already does not like to take her hyperlipidemia medication as she does not like taking medications. Discussed obtaining retroperitoneal ultrasound for further assessment evaluation. She discusses not wanting to attend pelvic floor therapy as she already attempts therapy for her chronic back pain. She otherwise offers no other issues or concerns at this time. [facility] Medical History Hypercholesterolemia Back pain Migraine Elevated cholesterol Obesity Surgical History History of incisional hernia repair History of colonoscopy History of cholecystectomy H/O abdominal surgery Family History Mother No problems noted. 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 Cognitive needs: No Hearing needs: No Vision needs: Yes (glasses ) Review of Systems Const Reports no additional complaints Eyes Reports no additional complaints ENT Reports no additional complaints Card Reports as per HPI Resp Reports no additional complaints Reports as per HPI Musc Reports as per HPI Neuro Reports as per HPI Psych Reports no additional complaints Endo Reports no additional complaints Kunal/Lymph Reports no additional complaints Aller/Immun Reports no additional complaints Physical Exam Const General: cooperative, healthy appearing, comfortable, no acute distress, well developed, alert and awake Orientation/consciousness: patient oriented x3 Limitations: no limitations HEENT Head: Yes normal to inspection, Yes normocephalic and Yes atraumatic Ears: hearing grossly normal bilaterally Eyes General: appearance normal, both eyes and all related structures Neck Neck: Yes normal visual inspection and Yes trachea midline Chest Chest palpation & inspection: normal inspection of the chest Resp Effort & Inspection: normal respiratory effort and able to speak in complete sentences Cardio Rate: regular rate GI Inspection: Yes normal to inspection General: Yes no CVA tenderness Back/Spine/Pelvis Back: no CVA tenderness Skin General skin exam: no rashes or lesions noted Neuro General: patient oriented x3 Extrem General: Yes normal to inspection Psych Appearance: grossly normal and well kempt Mental Status: mental status grossly normal Speech and movement: Normal speech and movement present and Clear speech present Affect: normal affect Attitude: cooperative Thought process: Normal thought process present Thought content: Normal thought content present Insight: Fair insight present (Psych) Judgement: Fair judgement present (Psych) Office Procedures Post Void Residual Post Residual Void Post Void Residual (PVR): 19 [id number]-[id number] Void Residual by ultrasound Results AMB Urinalysis, Automated UA Leukoctes 0 Patience/uL Last Edit by Fransisca Lenz CMA on 01/07/24 14:11 UA Nitrite Negative Last Edit by Fransisca Lenz [facility] on 01/07/24 14:11 UA Urobilinogen 0.2 mg/dL Last Edit by Fransisca Lenz [facility] on 01/07/24 14:11 UA Protein 0 mg/dL Last Edit by Fransisca Lenz, [facility] on 01/07/24 14:11 UA pH 6.0 Last Edit by Fransisca Lenz, [facility] on 01/07/24 14:11 UA Blood 0 Lebron/uL Last Edit by Fransisca Lenz, [facility] on 01/07/24 14:11 UA Specific [place] 1.015 Last Edit by Fransisca Lenzmeño Lenz, [facility] on 01/07/24 14:11 UA Ketone Negative Last Edit by Fransisca Lenz [facility] on 01/07/24 14:11 UA Bilirubin 0 mg/dL Last Edit by Fransisca Lenz, [facility] on 01/07/24 14:11 UA Glucose 0 mg/dL Last Edit by Fransisca Lenz [facility] on 01/07/24 14:11 Results Reviewed Results Reviewed: Laboratory Last Values Urine pH (Auto) 6.0 01/07/24 13:59 Specific [place] (Auto) 1.015 01/07/24 13:59 Urine Protein (Auto) 0 mg/dL 01/07/24 13:59 Glucose (UA)(Auto) 0 mg/dL 01/07/24 13:59 Urine Ketones (Auto) Negative 01/07/24 13:59 Urine Blood (Auto) 0 Lebron/uL 01/07/24 13:59 Urine Nitrite (Auto) Negative 01/07/24 13:59 Urine Bilirubin (Auto) 0 mg/dL 01/07/24 13:59 Urine Urobilinogen (Auto) 0.2 mg/dL 01/07/24 13:59 Leukocyte Esterase (Auto) 0 Patience/uL 01/07/24 13:59 Assessment & Plan Assessment & Plan (1) Stress incontinence: Code(s): N39.3 - Stress incontinence (female) (male) Plan In office urinalysis results reviewed with the patient today; as noted above. PVR 19 mL. Discussed at length potential causes for stress incontinence in urinary leakage. Discussed further treatment options with pelvic floor therapy, medications, and or attempting to retry urodynamics for further assessment evaluation; however currently patient does not wish to undergo further treatment options. She reports feeling urinary symptoms are not bothersome at this time. Will obtain retroperitoneal ultrasound for further assessment evaluation. Discussed bladder triggers/irritants. Discussed attempting to perform scheduled toileting Follow-up in 1-2 months with imaging to be completed prior; or sooner with any issues, concerns, and or questions. Orders: Orders AMB Urinalysis Automated Today R33.9 - Retention of urine, unspecified AMB Post Void Residual by ultrasound Today R33.9 - Retention of urine, unspecified US retroperitoneal comp Today N39.3 - Stress incontinence (female) (male) Patient Instructions: The patient had an opportunity to ask questions regarding the treatment plan. All questions were answered. Physical exam, labs, and imaging were discussed and reviewed in detail. As well as risks, benefits, and discussion of treatment choices. No major barriers to understanding were identified. The patient expressed understanding and agreement with the above treatment plan. The patient was made aware they should contact our office by phone for worsening of their current condition, the appearance of new symptoms, or with any questions or concerns. Compliance is encouraged with any medications and follow up testing that is ordered. It is a privilege to be allowed the opportunity to participate in? your urological care.? Again, if you have any questions or concerns If you have any questions or concerns please do not hesitate to contact me. The office is [phone]. This note is constructed using voice recognition software. While every effort has been made to ensure accuracy manager demand errors may have been included. Yours sincerely, ALICIA Almazan Coding Level of Care Code New Pt Level 3 (29984) Diagnoses Stress incontinence N39.3 CPT Codes Post Residual Void - PVR CPT Code: 75837-[id number] Void Residual by ultrasound ([id number])
== END 2024-01-07 14:34 | disposition home or self-care (01) ==
PROVIDERS: PCP Nurse Practitioner Family; Visit Provider Nurse Practitioner Family
DX: N39.3 Stress incontinence (female) (male) (principal)
CPT/HCPCS: 99203

== ENCOUNTER → 2024-01-07 13:53 | Outpatient (BNVA) | payer OTHER, SELFPAY | PROVIDERS: PCP Nurse Practitioner Family; Visit Provider Nurse Practitioner Family | DX: N39.3 Stress incontinence (female) (male) (principal) | CPT/HCPCS: 51798; 81003; 99202 ==

== ENCOUNTER 2024-01-27 16:00 | Outpatient (RCR) | payer OTHER, SELFPAY ==
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
--- NOTE | 2024-01-28 11:27 | MHC.PT.DC ---
[facility] [place] Office [place] Office [place] Office [address] Nelda Moser [address] [phone] F: [phone] F: [phone] F: [phone] F: [phone] Physical Therapy Discharge Report Diagnosis: Low back pain Date of Surgery: 04/15/23 Date of Evaluation: 12/20/23 Date of Discharge: 01/28/24 Treatments to Date: 4 Cancellations to Date: 2 No Shows to Date: 3 Discharge Status: Discharge Summary: Fransisca attended only 4 PT visits in the last 1 month. She no showed 3 times and canceled 2. She had no more appointments booked after 01/27/24. She was therefore d/c from PT to HEP and was advised to perform HEP for management of LBP. Electronically signed by: Carline Ewing PT DPT Please sign and return to therapist. Thank you for your referral.
== END 2024-01-28 11:27 | disposition home or self-care (01) ==
LOC: HO.PT 16:00
PROVIDERS: PCP Nurse Practitioner Family; Visit Provider Nurse Practitioner Family
DX: M54.50 Low back pain, unspecified (principal)
CPT/HCPCS: 97110; 97112; 97161; 97530

== ENCOUNTER 2024-01-28 13:24 | Outpatient (AMB) | payer OTHER, SELFPAY ==
[2024-01-28 13:27] VITALS: BMI 28.5
--- NOTE | 2024-01-28 13:27 | A.OFFVIS_ITS ---
Intake Vital Signs 01/28/24 13:27 Height 5 ft 2 in Weight 156 lb BMI 28.5 Intake Visit Reasons: Ov- EMG study Intake Note: Fransisca 53 yr old female presents today for her EMG review. States she has numbness and tingling in her right hand for the last 2 yrs and increases at nighttime. States she has tried braces with little help. Last seen with Belkis anthony who ordered an EMG study. States she will be traveling in the summer and is looking to have surgery approx in aug. Allergies No Known Allergies Allergy (Verified 01/28/24 13:29) HPI Ov- EMG study HPI Details Fransisca is a 53 year old right hand dominant woman who presents for a NCS review of her right hand numbness. She reports ~2+ years of intermittent numbness & pain in her right hand. She has numbness in the thumb, index, and middle finger. Symptoms intermittent, but daily,, but worse at night and she says wakes her up. She also complains of some weakness in her hand. She has found good relief from a wrist brace at night. She also says she finds some relief of her pain & symptoms from Tylenol & Ibuprofen, as well as a topical hand cream. She says she is planning to travel this year, and does not want to consider surgery until later. 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 She says she does not have to do any heavy lifting of patients. [facility] Medical History Hypercholesterolemia Back pain Migraine Elevated cholesterol Obesity Surgical History History of incisional hernia repair History of colonoscopy History of cholecystectomy H/O abdominal surgery Family History Mother No problems noted. 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 Cognitive needs: No Hearing needs: No Vision needs: Yes (glasses ) Review of Systems Const All systems reviewed & are unremarkable except as noted in HPI and below Physical Exam Vital Signs: BMI result Body Mass Index 28.5 Const General: cooperative, healthy appearing and no acute distress Orientation/consciousness: patient oriented x3 HEENT Head: Yes normocephalic and Yes atraumatic Eyes EOM: EOMs intact bilaterally Resp Effort & Inspection: normal respiratory effort and able to speak in complete sentences Cardio Jugular venous distension: no JVD Skin General skin exam: turgor normal Rashes: no rashes Neuro General: patient oriented x3 Extrem Other: Evaluation of Right Upper Extremity: The patient is alert, oriented, and in no acute distress Neuro: Not normal sensation in the median nerve distribution. Normal sensation in the ulnar nerve distribution No thenar or intrinsic wasting Good APB muscle belly firing and good finger cross Vascular: Cap refill brisk ROM: She can make a fist and extend all her digits No locking or catching Skin: No lacerations or abrasions. General: No Ecchymosis. No Erythema or evidence of infection. Nerve Conduction Study: Right side only IMPRESSION: 1. This is an abnormal study. 2. There is electrodiagnostic evidence for right moderate-severe median neuropathy at the wrist, consistent with carpal tunnel syndrome. 3. There is no electrodiagnostic evidence for ulnar neuropathy. Tamy Russell MD, [facility] 12/06/23 Psych Appearance: grossly normal Affect: normal affect Attitude: cooperative Assessment & Plan Assessment & Plan (1) Carpal tunnel syndrome on right: Code(s): G56.01 - Carpal tunnel syndrome, right upper limb Plan Assessment & Plan: 1. Right carpal tunnel syndrome, moderate-severe Symptoms intermittent, but daily, worse at night Not normal sensation today in clinic I educated her about this condition I discussed operative and non-operative treatment options The patient would like to proceed with surgery sometime this May, when she returns from her trip in April The risks and benefits of operative treatment were discussed with the patient and the patient wishes to proceed with surgery. These risks include, but are not limited to risk of damage to blood vessels, nerves, tendons, infection, recurrence, incomplete relief of preoperative symptoms, persistent pain, possible need for further surgery and the risks associated with regional blocks and anesthesia. The plan is to take the patient to the operating room sometime in the next few weeks for the following procedures: 1. Right carpal tunnel release, under local All of the preoperative paperwork including the consent was reviewed today. All the patient's questions were answered. The patient understands that they will be contacted by our surgery specialist dung jc to schedule this procedure She denies Diabetes, blood thinners, asthma, heart, lung, kidney issues Scribed for Akiko De Leon MD by Reginald Hayden, medical engineer, on 01/28/24 at 1:45 PM, EST. Coding Level of Care Code Est Pt Level 4 (36240) Diagnoses Carpal tunnel syndrome on right G56.01
== END 2024-01-28 13:49 | disposition home or self-care (01) ==
PROVIDERS: PCP Nurse Practitioner Family; Visit Provider Orthopaedic Surgery
DX: G56.01 Carpal tunnel syndrome, right upper limb (principal)
CPT/HCPCS: 99214

== ENCOUNTER → 2024-01-28 13:24 | Outpatient (BNVA) | payer OTHER, SELFPAY | PROVIDERS: PCP Nurse Practitioner Family; Visit Provider Orthopaedic Surgery | DX: G56.01 Carpal tunnel syndrome, right upper limb (principal) | CPT/HCPCS: 99212 ==

== ENCOUNTER 2024-03-04 16:54 | Outpatient (REF) | payer OTHER, SELFPAY ==
[2024-03-04 17:46] LABS: Appearance Urine Clear; Color Urine Yellow; Glucose Urine UA Negative (Negative); Leukocyte Esterase Urine Trace (Negative); Nitrite Urine Negative (Negative); UMIC TRIGGER UA YES; Urine Blood Trace (Negative); Urine Ketones Negative (Negative); Urine Protein Negative (Neg-Trace)
[2024-03-04 17:51] LABS: Bacteria Urine 2+ (None Seen); Hyaline Casts Urine 0-2 /LPF (0-2); RBC Urine 0-2 /HPF (0-2); Squamous Epithelial Cell Urine 0-2 /HPF (0-2)
== END 2024-03-04 16:55 | disposition home or self-care (01) ==
LOC: HO.LAB 16:54
PROVIDERS: Visit Provider Nurse Practitioner Family
DX: N39.3 Stress incontinence (female) (male) (principal); N39.41 Urge incontinence
CPT/HCPCS: 81001; 87086; 87088; 87186

== ENCOUNTER 2024-03-06 00:37 | Emergency (ER) | payer OTHER, SELFPAY ==
--- NOTE | ~2024-03-06 | CT_ITS ---
EXAMINATION: CT ABDOMEN AND PELVIS WITHOUT CONTRAST CLINICAL INFORMATION: Dysuria. COMPARISON: 12/20/2022 TECHNIQUE: Multidetector volumetric imaging was performed from the superior aspect of the liver through the pubic symphysis. Sagittal and coronal reformatted images were obtained on the technologist's workstation. This CT examination was performed using dose optimization techniques as appropriate, variously including the following: *Automated exposure control *Adjustment of mA and/or kV according to patient size (this includes techniques or standardized protocols for targeted exams where dose is matched to indication/reason for exam; i.e. extremities or head) *Use of iterative reconstruction technique DLP: 483 mGy-cm FINDINGS: LUNG BASES: The visualized lung bases are unremarkable. LIVER, GALLBLADDER, AND BILIARY TREE: The liver is normal in size, shape, and attenuation. No focal hepatic lesion or biliary ductal dilatation is present. There has been a prior cholecystectomy. PANCREAS: Unremarkable. SPLEEN: Unremarkable. ADRENAL GLANDS: Unremarkable. KIDNEYS AND URETERS: The kidneys are normal in size, shape, and attenuation. No hydronephrosis, hydroureter, or calculi seen. No perinephric stranding. BLADDER: There is urinary bladder wall thickening with pericystic infiltrative change. GASTROINTESTINAL TRACT: The small and large bowel are unremarkable. The appendix is unremarkable. ABDOMINAL WALL: No significant hernia is appreciated. LYMPH NODES: Normal. VASCULAR: Unremarkable. PELVIC VISCERA: Unremarkable. OSSEOUS STRUCTURES: Unremarkable. CT/CT abdomen pelvis wo IV con IMPRESSION: Urinary bladder wall thickening with pericystic infiltrative change consistent with cystitis. No renal calculi are identified. Fleischner guidelines were followed.
[2024-03-06 00:46] VITALS: BP 162/84; PULSE 125; RESP 19; TEMP 36.9; O2SAT 100; BMI 28.0
[2024-03-06 01:04] LABS: Appearance Urine Turbid; Color Urine Yellow; Glucose Urine UA Negative (Negative); Leukocyte Esterase Urine Large (3+) (Negative); Nitrite Urine Negative (Negative); UMIC TRIGGER UACC YES; Urine Blood Large (3+) (Negative); Urine Ketones Negative (Negative); Urine Protein 300 (3+) mg/dL (Neg-Trace)
[2024-03-06 01:09] LABS: Bacteria Urine Trace (None Seen); Hyaline Casts Urine 0-2 /LPF (0-2); RBC Urine >20 /HPF (0-2); Squamous Epithelial Cell Urine 0-2 /HPF (0-2); UACC Culture Trigger YES; WBC Urine >50 /HPF (0-5)
[2024-03-06] MEDS: 0.9 % Sodium Chloride 1,000 ML 999 ML IV (01:26)
[2024-03-06] MEDS: Ketorolac Tromethamine 30 MG/ML VIAL IVPUSH (01:28)
[2024-03-06 01:31] LABS: MANUAL DIFF FLAG NO
[2024-03-06 01:37] LABS: Basophils Percent Auto 0.4 % (0-2); Eosinophils Absolute Auto 0.1 X10*3/uL (0.0-0.4); Eosinophils Percent Auto 0.9 % (0-4); Hematocrit 39.7 % (37.0-47.0); Hemoglobin 13.3 g/dl (12.0-16.0); Imm Gran Abs Auto 0.01 X10*3/uL (0.00-0.03); Imm Gran Pct Auto 0.1 % (0.0-0.4); Lymphocytes Absolute Auto 1.9 X10*3/uL (1.2-4.9); Mean Corpuscular HGB Conc 33.5 g/dl (31.0-35.0); Mean Corpuscular Hemoglobin 30.1 pg (27.0-33.0); Mean Corpuscular Volume 89.8 fL (80.0-98.0); Mean Platelet Volume 10.5 fL (9.4-12.3); Monocytes Absolute Auto 0.9 X10*3/uL (0.1-1.2); Monocytes Percent Auto 9.1 % (2-11); Neutrophils Absolute Auto 6.6 x10*3/uL (2.0-8.3); Neutrophils Percent Auto 69.5 % (45-73); Platelet Count 225 X10*3/uL (160-400); Red Blood Count 4.42 X10*6/uL (4.20-5.50); White Blood Count 9.5 X10*3/uL (4.8-10.8)
[2024-03-06 01:57] LABS: Alanine Aminotransferase 22 U/L (0-31); Albumin Level 4.1 g/dL (3.5-5.0); Alkaline Phosphatase 90 U/L (39-117); Anion Gap 14 (12-20); Aspartate Amino Transferase 26 U/L (5-31); Bilirubin Total 0.8 mg/dL (0.0-1.0); Blood Urea Nitrogen 14 mg/dL (9-16); Calcium 9.6 mg/dL (8.4-10.2); Carbon Dioxide 27 mmol/L (22-29); Chloride 105 mmol/L (96-108); Creatinine Clr Calc Pharmacy 78.4; Estimated Glomerular Filt Rate > 60; Glucose Random 141 mg/dL (60-115); Potassium 3.6 mmol/L (3.3-5.1); Sodium 142 mmol/L (135-145); Total Protein 7.6 g/dL (6.5-8.0)
--- NOTE | 2024-03-06 02:37 | ED_ITS ---
HPI - Female Genitourinary General Chief complaint: Urogenital-Female Stated complaint: lower adb pain/[place] Time Seen by Provider: 03/06/24 01:05 Source: patient Mode of arrival: ambulatory Limitations: no limitations History of Present Illness HPI Narrative: 53-year-old with past medical history of hypercholesteremia, hyperbilirubinemia, UTI presents to ED for dysuria, and hematuria. Patient states suprapubic pain Related Data Home Medications ?Medication ?Instructions ?Recorded ?Confirmed acetaminophen 325 mg tablet 650 mg PO Q6H PRN 09/12/22 12/27/23 (Tylenol) Previous Rx's ?Medication ?Instructions ?Recorded ibuprofen 600 mg tablet 600 mg PO Q8H PRN pain #20 tabs 11/19/23 atorvastatin 10 mg tablet 10 mg PO BEDTIME #90 tabs 12/26/23 cefuroxime axetil 250 mg tablet 250 mg PO Q12H 7 days #14 tabs 03/06/24 naproxen 500 mg tablet 500 mg PO BID PRN pain 7 days #14 03/06/24 tabs Allergies Allergy/AdvReac Type Severity Reaction Status Date / Time No Known Allergies Allergy Verified 03/06/24 00:47 Review of Systems 2 Review of Systems: Dysuria, hematuria, significant Yes all other systems are reviewed and are negative [facility] Past Medical History Medical History Hypercholesterolemia Back pain Migraine Elevated cholesterol Obesity Surgical History History of incisional hernia repair History of colonoscopy History of cholecystectomy H/O abdominal surgery Family History Family History Mother No problems noted. 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 Cognitive needs: No Hearing needs: No Vision needs: Yes (glasses ) Physical Exam 2 Vital Signs: Vital Signs: Last Vital Signs Temp 97.8 F 03/06/24 04:42 Pulse 89 03/06/24 04:42 Resp 16 03/06/24 04:42 BP 111/64 03/06/24 04:42 Pulse Ox 97 03/06/24 04:42 O2 Del Method Room Air 03/06/24 04:42 BMI result Body Mass Index 28.0 Const: General: cooperative, healthy appearing, comfortable, no acute distress, well developed, alert, awake and Physically active O rientation/consciousness: oriented to person, oriented to place, oriented to time and patient oriented x3 HEENT: Head: Yes normal to inspection, Yes No palpable skull fracture present, Yes normocephalic and Yes atraumatic Eyes: General: appearance normal, both eyes and all related structures Neck: Neck: Yes normal visual inspection, Yes full ROM, Yes no lymphadenopathy, Yes no meningeal signs, Yes trachea midline, Yes supple, No anterior neck swelling and No tender Chest: Chest palpation & inspection: normal inspection of the chest and normal palpation of entire chest wall Resp: Effort & Inspection: normal respiratory effort and able to speak in complete sentences Auscultation: clear to auscultation bilaterally Cardio: Jugular venous distension: no JVD Heart sounds: S1 normal heart sound present and S2 normal heart sound present GI: Inspection: Yes normal to inspection Palpation (GI): Soft to palpation, not firm, Tenderness to palpation present (GI) suprapubicly, no guarding and not rigid : General: No CVA tenderness Back/Spine/Pelvis: Back: No CVA tenderness and No back tenderness Skin: General skin exam: no rashes or lesions noted, elasticity normal and turgor normal Neuro: General: oriented to person, oriented to place, oriented to time, patient oriented x3, gait normal, tone normal, moves all extremities, Normal light touch and pain sensation, no meningeal signs, no focal motor deficits, CN's II-XI intact bilaterally and normal sensation to monofilament Extrem: General: Yes normal to inspection, Yes full ROM and Yes capillary refill normal Psych: Appearance: grossly normal, well kempt and not disheveled Medications Administered Discontinued Medications Generic Name Dose Route Start Last Admin Trade Name Freq PRN Reason Stop Dose Admin Cefuroxime Axetil 250 mg 03/06/24 02:59 03/06/24 03:05 Cefuroxime Axetil 250 Mg Tablet PO 03/06/24 03:00 250 mg ONCE ONE Administration Sodium Chloride 1,000 mls @ 999 mls/hr 03/06/24 01:12 03/06/24 02:52 Ns IV 03/06/24 02:12 Infused .Q1H1M STA Infusion Ketorolac Tromethamine 30 mg 03/06/24 01:11 03/06/24 01:28 Ketorolac Tromethamine 30 Mg/Ml Vial IVPUSH 03/06/24 01:12 30 mg ONCE ONE Administration Medical Decision Making Medical Decision Making [facility] Narrative: 53-year-old female presents to the ED for dysuria and suprapubic pain the area. Patient has severe pain. Patient denies any vaginal discharge or vaginal bleeding. Urine shows UTI was sent for CT scan to rule out kidney stones. Rest of labs normal Differential Diagnosis Differential Diagnoses: The differential diagnosis associated with the presentation includes Admission/Observation Consideration of admission/observation: Escalation of care including admission/observation considered Lab Data [facility] Lab Attestation statement: I reviewed the patient's lab results. 03/06/24 01:25 03/06/24 01:25 Labs: Lab Results 03/06/24 03/06/24 Range/Units 00:56 01:25 WBC 9.5 (4.8-10.8) X10*3/uL RBC 4.42 (4.20-5.50) X10*6/uL Hgb 13.3 (12.0-16.0) g/dl Hct 39.7 (37.0-47.0) % MCV 89.8 (80.0-98.0) fL MCH 30.1 (27.0-33.0) pg MCHC 33.5 (31.0-35.0) g/dl RDW 13.0 (11.0-16.0) % Plt Count 225 (160-400) X10*3/uL MPV 10.5 (9.4-12.3) fL Immature Gran % (Auto) 0.1 (0.0-0.4) % Neut % (Auto) 69.5 (45-73) % Lymph % (Auto) 20.0 (20-40) % Terrell % (Auto) 9.1 (2-11) % Eos % (Auto) 0.9 (0-4) % Baso % (Auto) 0.4 (0-2) % Lymph # (Auto) 1.9 (1.2-4.9) X10*3/uL [place]rell # (Auto) 0.9 (0.1-1.2) X10*3/uL Eos # (Auto) 0.1 (0.0-0.4) X10*3/uL Baso # (Auto) 0.0 (0.0-0.2) X10*3/uL Abs Immat Gran (auto) 0.01 (0.00-0.03) X10*3/uL Absolute Neuts (auto) 6.6 (2.0-8.3) x10*3/uL Absolute Nucleated RBC 0.000 (0.0-0.012) X10*3/uL Nucleated RBC % (auto) 0.0 (0.0-0.2) /100WBC Sodium 142 (135-145) mmol/L Potassium 3.6 (3.3-5.1) mmol/L Chloride 105 (96-108) mmol/L Carbon Dioxide 27 (22-29) mmol/L Anion Gap 14 (12-20) BUN 14 (9-16) mg/dL Creatinine 0.74 (0.5-1.4) mg/dL Estim Creat Clear Calc 78.4 Estimated GFR > 60 Random Glucose 141 H (60-115) mg/dL Calcium 9.6 (8.4-10.2) mg/dL Total Bilirubin 0.8 (0.0-1.0) mg/dL AST 26 (5-31) U/L ALT 22 (0-31) U/L Alkaline Phosphatase 90 (39-117) U/L Total Protein 7.6 (6.5-8.0) g/dL Albumin 4.1 (3.5-5.0) g/dL Urine Color Yellow Urine Appearance Turbid Urine pH 7.0 (5.0-9.0) Ur Specific [place] 1.020 (1.005-1.025) Urine Protein 300 (3+) H (Neg-Trace) mg/dL Urine Glucose (UA) Negative (Negative) mg/dL Urine Ketones Negative (Negative) mg/dL Urine Blood Large (3+) H (Negative) Urine Nitrite Negative (Negative) Ur Leukocyte Esterase Large (3+) H (Negative) Urine RBC >20 H (0-2) /HPF Urine WBC >50 H (0-5) /HPF Ur Squamous Epith Cells 0-2 (0-2) /HPF Urine Bacteria Trace (None Seen) Hyaline Casts 0-2 (0-2) /LPF Independent Interpretation I performed an independent interpretation of an: CT Scan Radiology Impression Discussion of test interpretation with radiology: I have reviewed the radiologist's reading. Independent Historian Clinical information obtained from an independent historian. History obtained from or confirmed by: Other (PATIENT) External Record Review External record reviewed: Other (PRIOR VISITS) Prescription Management I considered prescription management with: Pain Medication and Antibiotic Discharge Plan Discharge Clinical Impression: Urinary tract infection Patient Disposition: Home, Self-Care Instructions: Urinary Tract Infection in Women (ED) Additional Instructions: Drink plenty of fluids, antibiotic as prescribed Into the ED immediately for worsening abdominal pain, nausea, vomiting, flank pain, fever, chills, dysuria, hematuria, any other concerning symptoms. REcommed follow-up with primary care provider Prescriptions: New cefuroxime axetil 250 mg tablet 250 mg PO Q12H 7 Days Qty: 14 0RF naproxen 500 mg tablet 500 mg PO BID PRN (Reason: pain) 7 Days Qty: 14 0RF No Action acetaminophen [Tylenol] 325 mg tablet 650 mg PO Q6H PRN ibuprofen 600 mg tablet 600 mg PO Q8H PRN (Reason: pain) Qty: 20 0RF atorvastatin 10 mg tablet 10 mg PO BEDTIME Qty: 90 1RF Stand Alone Forms: Work/School Release Interventions: ED Discharge Assessment Last Done: 03/06/24 04:42 Discharge Date/Time: 03/06/24 04:42 Print Language: Hungarian
--- NOTE | 2024-03-06 02:43 | PC.NURSE ---
pt attempted to walk to the bathroom due to pressure she was feeling in her lower abd. once standing pt lost bladder controll and voided on the floor. Pt still has ivf infusing and pt was changed over.
[2024-03-06 02:47] VITALS: BP 115/79; PULSE 93; RESP 16; TEMP 36.9
--- NOTE | 2024-03-06 02:47 | PC.NURSE ---
pt ambulated to the bathroom with steady gait. no incont this time. pt reports pressure and burning with pain.
[2024-03-06 02:50] VITALS: O2SAT 98
[2024-03-06 02:56] VITALS: BP 115/79; PULSE 93; RESP 17; TEMP 36.9; O2SAT 98
[2024-03-06] MEDS: cefuroxime axetiL 250 MG TABLET PO (03:05)
[2024-03-06 04:42] VITALS: BP 111/64; PULSE 89; RESP 16; TEMP 36.6; O2SAT 97
== END 2024-03-06 04:42 | disposition home or self-care (01) ==
PROVIDERS: Physician Assistant; Emergency Provider Internal Medicine
DX: N39.0 Urinary tract infection, site not specified (principal)
CPT/HCPCS: 36415; 74176; 80053; 81001; 85025; 96361; 96374; 99284; J1885

== ENCOUNTER 2024-05-04 10:05 | Day surgery (SDC) | payer OTHER, SELFPAY ==
--- NOTE | 2024-05-04 08:04 | W.PM.OPN ---
Operative Note Operative Note Date of Service: 05/04/24 Narrative: Preop diagnosis: 1. Right Carpal tunnel syndrome Postop diagnosis: same Procedure: 1. Right Carpal tunnel release Surgeon: Akiko De Leon MD Anesthesia: local block using 1% lidocaine with epinephrine Findings: Thickened transverse carpal ligament. EBL: Less than 5 mL Specimens: None Complications: None Disposition: Brought to recovery room in stable condition Plan: Follow-up for 10-14 days for wound check and suture removal Indications: The patient is 54 years old, with right carpal tunnel syndrome that has been unresponsive to nonoperative management. The risks and benefits of operative treatment including but not limited to risk of damage to blood vessels, nerves, tendons, infection, persistent pain, persistent symptoms, or possible need for additional surgery were discussed with the patient and the patient wishes to proceed with surgery. Procedure: Once consent was obtained a local block was performed using a combination of 1% lidocaine with epinephrine. The patient was then brought back to the operating suite and placed on the operative table in supine position. The right upper extremity was prepped and draped in a standard surgical fashion. Once assured that we had a good block, a 2.0 cm longitudinal incision was made centered over the carpal tunnel. The incision was made through the skin to the subcutaneous tissues using a #15 blade. Dissection was made down to the level of the transverse carpal ligament with care being taken to protect the palmar cutaneous nerve. Once the transverse carpal ligament was clearly visualized, a longitudinal incision was made in the transverse carpal ligament 1st using a #15 blade, then using tenotomy scissors under direct visualization. Care was taken to look for and protect the motor branch of the median nerve when seen in this area. Once satisfied with our carpal tunnel release the wound was copiously irrigated with normal saline and hemostasis was obtained with a brief period of local pressure. The skin edges were reapproximated with some 5.0 nylon suture material and a sterile dressing was applied. The patient appears to have tolerated the procedure well and with no complications. All digits were well vascularized at the conclusion of the case.
[2024-05-04 10:30] VITALS: BP 130/62; PULSE 81; RESP 16; TEMP 36.1; O2SAT 99; BMI 28.3
--- NOTE | 2024-05-04 13:12 | MHC.SHP ---
Pre-Procedural Eval Section A - 24 Hr Update-Section A only Date of Service: 05/04/24 The patient is an INPATIENT: No Changes since office visit: No Cold of Flu in the past 2 weeks, No New Medical Problems, No Changes in Medication and No Patient answered all questions The patient has been examined within 24 hours of the surgical procedure. The History & Physical has been completed within 30 days and I have reviewed it.: Yes Section B - Complete if H&P > 30 days Chief Complaint: Carpal tunnel syndrome, right upper limb Allergies: Allergies Allergy/AdvReac Type Severity Reaction Status Date / Time No Known Allergies Allergy Verified 05/04/24 10:31 Exam Exam Comment: Right carpal tunnel Plan Diagnosis/Plan: Unchanged I have reviewed the history and physical and performed a pertinent physical examination on my patient. No changes have occurred unless specified. Time Spent With Patient Time: Total time managing care of this patient today ____ minutes.
[2024-05-04 14:52] VITALS: BP 107/55; PULSE 67; RESP 17; O2SAT 100
== END 2024-05-04 14:10 | disposition home or self-care (01) ==
PROVIDERS: Visit Provider Orthopaedic Surgery
PROC: (CPT 64721; principal; 2024-05-04 13:10)
DX: G56.01 Carpal tunnel syndrome, right upper limb (principal)
CPT/HCPCS: 64721; J0171

== ENCOUNTER → 2024-05-04 10:05 | Outpatient (BNV) | payer OTHER, SELFPAY | PROVIDERS: Visit Provider Orthopaedic Surgery | DX: G56.01 Carpal tunnel syndrome, right upper limb (principal) | CPT/HCPCS: 64721 ==

== ENCOUNTER 2024-05-19 12:07 | Outpatient (AMB) | payer OTHER, SELFPAY ==
--- NOTE | 2024-05-19 12:12 | A.OFFVIS_ITS ---
Vital Signs 05/19/24 12:15 Height 5 ft 2 in Weight 155 lb BMI 28.3 Handedness Right Intake Visit Reasons: PO RT CTR 05/04/24 AR Intake Note: Fransisca is a 54 year old right hand dominant female who presents today for post op evaluation s/p right CTR on 05/04/[address] De Leon. Patient reports 10 pain on a 0-10 pain scale and extreme sensitivity near incision. She states she has improved with numbness and tingling. Sutures removed in office today and steri strips applied. Allergies No Known Allergies Allergy (Verified 05/19/24 12:12) HPI HPI PO RT CTR 05/04/24 AR: Details: Fransisca is a 53 year old right hand dominant woman who returns S/P right carpal tunnel release, DOS: 05/04/24 She complains of severe pain in her hand & wrist today, she says this is 10/10 currently, and she is extremely sensitive about her incision and fearful about having the sutures removed.. In regards to her sensation, she says this has improved and is now normal. 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 She has said that she does not have to do any heavy lifting of patients. However, she says she can not go back to work right now. [facility] Medical History Hypercholesterolemia Back pain Migraine Elevated cholesterol Obesity Surgical History History of incisional hernia repair History of colonoscopy History of cholecystectomy H/O abdominal surgery Family History Mother No problems noted. 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 Sutures removed and Steri-Strips applied. She complained of 10/10 pain when attempting to remove her sutures Initially she would only bring her fingertips ~5cm from her palm We worked on ROM exercises today in clinic With encouragement, before leaving clinic, she was able to make a fist and extend all her digits Her incision site is clean and dry with no erythema drainage or evidence of infection. She does not have any unusual swelling She appeared to tolerate working on range of motion well and without difficulty. Sensation is intact and now normal in the median nerve distribution Hypersensitivity about the incision site. Cap refill is brisk Nerve Conduction Study: Right side only IMPRESSION: 1. This is an abnormal study. 2. There is electrodiagnostic evidence for right moderate-severe median neuropathy at the wrist, consistent with carpal tunnel syndrome. 3. There is no electrodiagnostic evidence for ulnar neuropathy. Tamy Russell MD, GHADA 12/06/23 Psych Appearance: grossly normal Affect: normal affect Attitude: cooperative Assessment & Plan Assessment & Plan (1) Carpal tunnel syndrome on right: Code(s): G56.01 - Carpal tunnel syndrome, right upper limb Category: Medical Plan Assessment & Plan: 1. Right carpal tunnel syndrome, S/P release DOS: 05/04/24 Pre-operative symptoms intermittent, but daily, worse at night Now with normal sensation The patient appears to be doing well post-operatively, but was somewhat anxious about having her sutures removed. I educated her about the post-operative course. She had some early mild stiffness, as she was apprehensive about working on range of motion. This improved after we worked on range of motion exercises in clinic. I discussed activity modifications, she is to lift nothing heavier than a margaret lphone for the next two weeks I demonstrated ROM exercises today in clinic, she will perform gentle ROM exercises at home. 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 She is happy with this plan She can follow up prn Scribed for Akiko De Leon MD by Reginald Hayden, certified court/medical interpreter, on 05/19/24 at 12:25 PM, EST. Scribe Plan - Not visible on output: Scribed for Akiko De Leon MD by Reginald Hayden, certified court/medical interpreter, on [ ] at [ ], EST. Coding Level of Care Code Global (07835) Diagnoses Carpal tunnel syndrome on right G56.01
[2024-05-19 12:15] VITALS: BMI 28.3
== END 2024-05-19 12:28 | disposition home or self-care (01) ==
PROVIDERS: PCP Nurse Practitioner Family; Visit Provider Orthopaedic Surgery
DX: G56.01 Carpal tunnel syndrome, right upper limb (principal)
CPT/HCPCS: 99024

== ENCOUNTER → 2024-05-19 12:07 | Outpatient (BNVA) | payer OTHER, SELFPAY | PROVIDERS: PCP Nurse Practitioner Family; Visit Provider Orthopaedic Surgery | DX: Z09 Encounter for follow-up examination after completed treatment for conditions other than malignant neoplasm (principal); Z86.69 Personal history of other diseases of the nervous system and sense organs | CPT/HCPCS: 99212 ==

== ENCOUNTER 2024-05-25 13:41 | Outpatient (AMB) | payer OTHER, SELFPAY ==
--- NOTE | 2024-05-25 13:42 | MHC.PC.OV ---
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: No Allergies No Known Allergies Allergy (Verified 05/25/24 14:20) Medication List - Last Reconciled 05/25/24 by Norman Flower MD acetaminophen (Tylenol) 650 mg PO Q6H PRN atorvastatin 10 mg PO BEDTIME ibuprofen 600 mg PO Q8H PRN Tobacco use date assessed: 05/25/24 Dental Screening Dental Screen Date: 12/26/23 HPI F/U HLD, back pain HPI Details Patient comes in today for her follow up visit States that she just had carpal tunnel surgery on her right wrist done with orthopedics about 3 weeks ago and her right hand still feels slightly sore States that she feels okay otherwise Recalls that she was started on Atorvastatin 10 mg QD back in December 2023 for high cholesterol levels and has not had her cholesterol levels rechecked since She used to see Rissa Avina but switched over to Dr. Najera when she left - was last seen by Dr. Baker in December 2023 States that she has been tolerating her Rx without any issues She denies any headaches or dizziness Denies any chest pains, no SOB No nausea/vomiting, no abdominal pain No change in bowel habits noted [facility] Medical History (Updated 05/25/24 @ 14:32 by Norman Flower MD) Overweight (BMI 25.0-29.9) Pure hypercholesterolemia Hypercholesterolemia Back pain Migraine Obesity Surgical History (Updated 05/25/24 @ 14:25 by Norman Flower MD) History of carpal tunnel release History of incisional hernia repair History of colonoscopy History of cholecystectomy H/O abdominal surgery Family History Mother No problems noted. 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 1. Little interest or pleasure in doing things: not at all 2. Feeling down, depressed, or hopeless: not at all 3. Trouble falling or staying asleep, or sleeping too much: not at all 4. Feeling tired or having little energy: not at all 5. Poor appetite or overeating: not at all 6. Feeling bad about yourself - or that you are a failure or have let yourself or your family down: not at all 7. Trouble concentrating on things, such as reading the newspaper or watching television: not at all 8. Moving or speaking so slowly that other people could have noticed. Or the opposite - being so fidgety or restless that you have been moving around a lot more than usual: not at all 9. Thoughts that you would be better off or of hurting yourself in some way: not at all Total score: 0 Depression Screening Interpretation: Negative Depression Screening Done: Yes Source: Developed by Drs. Amandeep Santamaria, Selam Scott, Wojciech Mccall and colleagues, with an educational artem from [employer]. Thrive Questionnaire Date Thrive assessed: 12/26/23 I am a: Patient What is your living situation today?: I have a steady place to live Within the past 12 months, did the food you bought not last and you didn't have the money to get more?: Never true Within the past 12 months, did you worry whether your food would run out before you got money to buy more?: Never true Do you have trouble paying for medicines?: No Do you have trouble getting transportation to medical appointments?: No Do you have trouble paying your heating and electricity bill?: No Do you have trouble taking care of your child, family member or friend?: No Do you have trouble with day-to-day activities such as bathing, preparing meals, shopping, managing finances, etc.?: No Are you currently unemployed and looking for a job?: No Are you interested in more education?: No Currently or been in a relationship where the following occur: no concerns reported THRIVE Score: 0 AUDIT C Alcohol Use Questionnaire (AUDIT-C) 1. How often do you have a drink containing alcohol?: Never 3. How often do you have six or more drinks on one occasion?: Never Total Score: 0 BRUNO-7 AMB Questionnaire BRUNO-7 Date BRUNO - 7 assessed: 12/26/23 Source: Developed by Drs. Amandeep Santamaria, Selam Scott, Wojciech Mccall and colleagues, with an educational artem from [employer]. Review of Systems Const Denies chills, Denies fatigue, Denies fever(s) and Denies headache(s) ENT Denies dysphagia, Denies dizziness, Denies headache(s), Denies neck pain, Denies odynophagia and Denies sore throat Card Denies chest pain, Denies palpitations and Denies dyspnea Resp Denies cough and Denies dyspnea GI Denies abdominal pain, Denies constipation, Denies dysphagia, Denies heartburn, Denies diarrhea, Denies nausea, Denies odynophagia and Denies vomiting Denies difficulty voiding, Denies nocturia, Denies dysuria and Denies urinary urgency Musc Reports arthralgias (right wrist - s/p CTS surgery 3 weeks ago) and Denies neck pain Neuro Denies dizziness and Denies headache(s) Endo Denies fatigue and Denies palpitations Physical exam (Primary Care) Vital Signs: Last Vital Signs Pulse 95 05/25/24 13:43 BP 128/70 05/25/24 13:43 Pulse Ox 97 05/25/24 13:43 Oxygen Delivery Method Room Air 05/25/24 13:43 BMI result Body Mass Index 28.9 Tobacco/Smoking Status: Tobacco use Status Tobacco use date assessed 05/25/24 05/25/24 13:44 Patient Tobacco Use Status Never used Tobacco 05/25/24 13:44 e-Cigarette/Vaping Use Never Used 05/25/24 13:44 PHQ-9: PHQ-9 Score PHQ-9: Total score 0 05/25/24 13:44 Depression Screening Interpretation: Negative Thrive Assessment: Date of Thrive Assessment Date Thrive assessed 12/26/23 05/25/24 13:44 Currently or been in a relationship where the following occur: no concerns reported Const General: no acute distress and alert HENMT Throat: Yes posterior oropharynx normal and Yes tonsils normal (no TP congestion) Neck Neck: Yes no lymphadenopathy and Yes supple Thyroid: Thyroid normal Resp Auscultation: clear to auscultation bilaterally, no rales and no wheezes Cardio Rate: regular rate Rhythm: regular rhythm Heart sounds: no murmurs GI Palpation (GI): Soft to palpation and nontender Auscultation: normal bowel sounds General: Yes no CVA tenderness Back/Spine/Pelvis Back: no CVA tenderness Skin Other: (+) healed longitudinal scar over the volar aspect of the right wrist/hand Rashes: no rashes Extrem General: Yes no clubbing, cyanosis or edema Assessment and Plan Assessment & Plan (1) Pure hypercholesterolemia: Code(s): E78.00 - Pure hypercholesterolemia, unspecified Plan: Patient's total and LDL cholesterol levels were elevated at 275 mg/dl and 183 mg/dl when they were last checked in November 2023 She was started on Atorvastatin 10 mg QD in December 2023 and has not had her cholesterol levels rechecked since Reinforced low cholesterol diet Continue Atorvastatin 10 mg QD Will send patient to recheck her fasting lipids and labs [facility] for follow up She is advised that if her numbers have not improved significantly or are still elevated on her labs, we may need to increase her dose to 20 mg QD and she will likely need to recheck her labs again before her next follow up appt with her PCP in July 2024 Otherwise, if her numbers are now at or near goal, will just have her continue on her current dose (2) Migraines: Code(s): G43.909 - Migraine, unspecified, not intractable, without status migrainosus Qualifiers: Migraine type: unspecified Status migrainosus presence: without status migrainosus Intractability: not intractable Qualified Code(s): G43.909 - Migraine, unspecified, not intractable, without status migrainosus Plan: Appears controlled Continue Ibuprofen 600 mg PRN (3) Carpal tunnel syndrome on right: Code(s): G56.01 - Carpal tunnel syndrome, right upper limb Plan: S/P carpal tunnel release surgery a few weeks ago on 05/04/2024 Follow up with orthopedics as scheduled (4) Overweight (BMI 25.0-29.9): Code(s): E66.3 - Overweight Plan: Reinforced diet/exercise as tolerated/lose weight Plan Follow up with PCP as scheduled in July 2024 Orders: Orders Comprehensive [place]. Panel Fast Today E78.00 - Pure hypercholesterolemia, unspecified Lipid Panel Today E78.00 - Pure hypercholesterolemia, unspecified Coding Level of Care Code Est Pt Level 3 (26186) Diagnoses Pure hypercholesterolemia E78.00 Migraine without status migrainosus, not intractable, unspecified migraine type G43.909 Migraine type: unspecified Status migrainosus presence: without status migrainosus Intractability: not intractable Carpal tunnel syndrome on right G56.01 Overweight (BMI 25.0-29.9) E66.3
[2024-05-25 13:43] VITALS: BP 128/70; PULSE 95; O2SAT 97; BMI 28.9
== END 2024-05-25 14:24 | disposition home or self-care (01) ==
PROVIDERS: PCP Internal Medicine; Visit Provider Internal Medicine
DX: E78.00 Pure hypercholesterolemia, unspecified (principal); G43.909 Migraine, unspecified, not intractable, without status migrainosus; G56.01 Carpal tunnel syndrome, right upper limb; E66.3 Overweight
CPT/HCPCS: 99213

== ENCOUNTER 2024-05-27 08:16 | Outpatient (REF) | payer OTHER, SELFPAY ==
[2024-05-27 09:35] LABS: Alanine Aminotransferase 14 U/L (0-31); Albumin Level 4.2 g/dL (3.5-5.0); Alkaline Phosphatase 65 U/L (39-117); Anion Gap 11 (12-20); Aspartate Amino Transferase 19 U/L (5-31); Bilirubin Total 2.2 mg/dL (0.0-1.0); Blood Urea Nitrogen 14 mg/dL (9-16); Calcium 9.3 mg/dL (8.4-10.2); Carbon Dioxide 28 mmol/L (22-29); Chloride 106 mmol/L (96-108); Cholesterol 198 mg/dL (<200); Estimated Glomerular Filt Rate > 60; Glucose Fasting 104 mg/dL (60-99); HDL Cholesterol 61 mg/dL (>40); LDL Cholesterol Calculated 120 mg/dL (<100); Potassium 3.8 mmol/L (3.3-5.1); Sodium 141 mmol/L (135-145); Total Protein 7.1 g/dL (6.5-8.0); Triglycerides 88 mg/dL (<150)
== END 2024-05-27 08:17 | disposition home or self-care (01) ==
LOC: HO.LAB 08:16
PROVIDERS: PCP Internal Medicine; Visit Provider Internal Medicine
DX: E78.00 Pure hypercholesterolemia, unspecified (principal)
CPT/HCPCS: 36415; 80053; 80061

== ENCOUNTER 2024-08-05 14:59 | Outpatient (AMB) | payer OTHER, SELFPAY ==
--- NOTE | 2024-08-05 15:01 | MHC.PC.OV ---
Vital Signs 08/05/24 15:03 Height 5 ft 2 in Weight 157 lb 4 oz BMI 28.8 BP 106/66 Blood Pressure Location Lt brachial Position Sitting Pulse 83 Pulse Source Pulse Oximeter Pulse Oximetry (%) 99 Oxygen Delivery Method Room Air Intake Visit Reasons: 6 month f/u Intake Note: Patient is here to follow up on Hypercholesterolemia, Migraine. Arson Investigator Required: No Door Opener: Not Required per policy Accompanied by: Self / Same As Patient Allergies No Known Allergies Allergy (Verified 08/05/24 15:37) Medication List - Last Reconciled 08/05/24 by Marco A Najera MD acetaminophen (Tylenol) 650 mg PO Q6H PRN atorvastatin 10 mg PO BEDTIME ibuprofen 600 mg PO Q8H PRN Tobacco use date assessed: 08/05/24 Dental Screening Dental Screen Date: 12/26/23 HPI 6 month f/u HPI Details 54-year-old female presents to the office to discuss her chronic medical conditions. Patient has been compliant with her cholesterol medications. Migraine symptoms have been stable on current medications. Not exercising or following any particular diet. Able to function and do all activities of daily living. Requests a screening mammogram. [facility] Medical History Overweight (BMI 25.0-29.9) Pure hypercholesterolemia Hypercholesterolemia Back pain Migraine Obesity Surgical History History of carpal tunnel release History of incisional hernia repair History of colonoscopy History of cholecystectomy H/O abdominal surgery Family History Mother No problems noted. 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 Amandeep Santamaria, Selam Scott, Wojciech Mccall and colleagues, with an educational artem from [employer]. Physical exam (Primary Care) Vital Signs: Last Vital Signs Pulse 83 08/05/24 15:03 BP 106/66 08/05/24 15:03 Pulse Ox 99 08/05/24 15:03 Oxygen Delivery Method Room Air 08/05/24 15:03 Care Plan Goal for BP management: Blood pressure is in range. Continue current medications. BMI result Body Mass Index 28.8 Tobacco/Smoking Status: Tobacco use Status Tobacco use date assessed 08/05/24 08/05/24 15:03 Patient Tobacco Use Status Never used Tobacco 08/05/24 15:03 e-Cigarette/Vaping Use Never Used 08/05/24 15:03 Thrive Assessment: Date of Thrive Assessment Date Thrive assessed 12/26/23 08/05/24 15:03 Const General: cooperative and healthy appearing Nutritional Appearance: well nourished Orientation/consciousness: patient oriented x3 Limitations: no limitations HENMT Head: Yes normal to inspection Eyes General: appearance normal, both eyes and all related structures Neck Neck: Yes normal visual inspection Chest Chest palpation & inspection: normal palpation of entire chest wall Resp Effort & Inspection: normal respiratory effort Neuro General: patient oriented x3 Results AMB Hemoglobin A1c AMB Hemoglobin A1c 5.9 % Last Edit by VASQUEZ Ley on 08/05/24 15:16 Results Reviewed Results Reviewed: Laboratory Last Values Hgb A1c (Clinic) 5.9 % (4.0-6.0) 08/05/24 15:04 Assessment and Plan Assessment & Plan (1) Hypercholesterolemia: Code(s): E78.00 - Pure hypercholesterolemia, unspecified Plan: Blood work has been ordered. Will call with the results. Orders: Orders Lipid Panel Today E78.00 - Pure hypercholesterolemia, unspecified AMB Hemoglobin A1c Today Z13.9 - Encounter for screening, unspecified Basic Metabolic Panel Today E78.00 - Pure hypercholesterolemia, unspecified Complete Blood Count no Diff Today E78.00 - Pure hypercholesterolemia, unspecified Liver Panel Today E78.00 - Pure hypercholesterolemia, unspecified Thyroid Stimulating Hormone Today E78.00 - Pure hypercholesterolemia, unspecified UA and rflx microscopic Today E78.00 - Pure hypercholesterolemia, unspecified Coding Level of Care Code Est Pt Level 4 (81929) Complex EM visit Add On G2211 Diagnoses Hypercholesterolemia E78.00
[2024-08-05 15:03] VITALS: BP 106/66; PULSE 83; O2SAT 99; BMI 28.8
== END 2024-08-05 15:30 | disposition home or self-care (01) ==
PROVIDERS: PCP Internal Medicine; Visit Provider Internal Medicine
DX: E78.00 Pure hypercholesterolemia, unspecified (principal)
CPT/HCPCS: 83036; 99214; G2211

== ENCOUNTER → 2024-08-05 15:30 | Outpatient (BNV) | payer OTHER, SELFPAY | PROVIDERS: PCP Internal Medicine; Visit Provider Internal Medicine | DX: Z12.31 Encounter for screening mammogram for malignant neoplasm of breast (principal) | CPT/HCPCS: 77063; 77067 ==

== ENCOUNTER 2024-08-05 15:32 | Outpatient (REF) | payer OTHER, SELFPAY ==
--- NOTE | ~2024-08-05 | MM_ITS ---
EXAMINATION: MM SCREENING DIGITAL BREAST TOMOSYNTHESIS, BILATERAL CLINICAL INFORMATION: Screening. Asymptomatic. COMPARISON: Mammography: Comparison is made with available priors TECHNIQUE: Digital breast mammography with tomosynthesis is performed in both the craniocaudal and mediolateral oblique views along with computer-aided detection (CAD). FINDINGS: The breasts are heterogeneously dense, which may obscure small masses (ACR BI-RADS breast composition Category c). There are no significant masses, abnormal calcifications, or other abnormalities. MM/MM tomosynthesis screening BI IMPRESSION: No mammographic evidence of malignancy. ASSESSMENT: BI-RADS BI-RADS 1 - Negative RECOMMENDATION: Routine annual mammography screening. 1 year F/U This examination should not preclude the clinical evaluation of a suspicious palpable abnormality. This patient's information was entered into a reminder system with a target due date for their next mammogram. Electronically signed by: Carol He DO 08/23/2024 09:47 AM EDT
== END 2024-08-05 15:33 | disposition home or self-care (01) ==
LOC: HO.MAMMO 15:32
PROVIDERS: PCP Internal Medicine; Visit Provider Internal Medicine
DX: Z12.31 Encounter for screening mammogram for malignant neoplasm of breast (principal)
CPT/HCPCS: 77063; 77067

== ENCOUNTER 2024-11-10 11:03 | Outpatient (AMB) | payer OTHER, SELFPAY ==
--- NOTE | 2024-11-10 11:05 | AM.OFFVISNUR ---
Intake Visit Reasons: Flu Shot Allergies No Known Allergies Allergy (Verified 08/05/24 15:37) Office Procedures Flu Questionnaire Does the patient have a severe egg allergy?: No Does the patient have severe life threatening allergies?: No Does the patient have a fever or illness today?: No Has the patient ever had Guillain-Stuart Syndrome?: No Has the patient ever had any past reaction to a flu shot?: No Office Meds tuberculin PPD 5 tub. unit/0.1 mL intradermal injection solution Performing Provider: Marco A Najera MD Performing Location: [facility] Administered by: Keli Guerra LPN on 11/10/24 11:24 Dose Route Admin Location Dispensed Lot Number Expiration Date [facility] Bean Snapper 0.1 mL intradermal left forearm 0.1 mL [id number] 04/30/27 40790-962-20 [employer] Immunizations Fluarix Triv [id number] (PF) 45 mcg (15 mcg x 3)/0.5 mL IM syringe Performing Provider: Marco A Najera MD Performing Location: [facility] Administered by: eKli Guerra LPN on 11/10/24 11:24 Dose Route Admin Location Dispensed Lot Number Expiration Date [facility] Bean Snapper 0.5 mL IM Right Deltoid 0.5 mL [id number] 05/31/25 17265-174-01 [employer]el VIS Given Date VIS Provided VIS Publication Date 11/10/24 Single Vaccine 21 Eligibility Eligibility Date Funding Source Not [facility] Eligible 11/10/24 Private Assessment & Plan Assessment & Plan Orders: Orders Influenza [id number] Immunization 11/10/24 Z23 - Encounter for immunization AMB PPD Planted 11/10/24 Z11.1 - Encounter for screening for respiratory tuberculosis
== END 2024-11-10 12:09 | disposition home or self-care (01) ==
PROVIDERS: PCP Internal Medicine; Visit Provider Internal Medicine
DX: Z11.1 Encounter for screening for respiratory tuberculosis (principal); Z23 Encounter for immunization

== ENCOUNTER → 2024-11-10 11:03 | Outpatient (BNVA) | payer OTHER, SELFPAY | PROVIDERS: PCP Internal Medicine; Visit Provider Internal Medicine | DX: Z23 Encounter for immunization (principal); Z11.1 Encounter for screening for respiratory tuberculosis | CPT/HCPCS: 86580; 90471; 90656 ==

== ENCOUNTER 2025-02-05 09:18 | Outpatient (AMB) | payer OTHER, SELFPAY ==
--- NOTE | 2025-02-05 09:21 | MHC.PC.OV ---
Vital Signs 02/05/25 09:22 Height 5 ft 2 in Weight 160 lb BMI 29.3 BP 126/70 Respiration 16 Pulse 76 Pulse Source Pulse Oximeter Temp 97.6 F Pulse Oximetry (%) 99 Oxygen Delivery Method Room Air Intake Visit Reasons: 6 month follow up Malariologist Required: No Accompanied by: Self / Same As Patient Allergies No Known Allergies Allergy (Verified 02/05/25 09:38) Medication List - Last Reconciled 02/05/25 by Melba Burns PA-C acetaminophen (Tylenol) 650 mg PO Q6H PRN atorvastatin 10 mg PO BEDTIME ibuprofen 600 mg PO Q8H PRN Tobacco use date assessed: 02/05/25 Dental Screening Dental Screen Date: 12/26/23 Did you have a dental visit in the last 12 months?: No Did you have a dental problem in the last 6 months where you did not have access to dental care?: No [facility] Medical History (Updated 02/05/25 @ 10:05 by Melba Burns PA-C) History of mammogram (~08/05/24) Spondylosis of lumbar spine Prediabetes Overweight (BMI 25.0-29.9) Pure hypercholesterolemia Hypercholesterolemia Back pain Migraine Obesity Surgical History History of carpal tunnel release History of incisional hernia repair History of colonoscopy (~09/15/19) History of cholecystectomy H/O abdominal surgery Family History Mother No problems noted. 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 1. Little interest or pleasure in doing things: not at all 2. Feeling down, depressed, or hopeless: not at all 3. Trouble falling or staying asleep, or sleeping too much: not at all 4. Feeling tired or having little energy: not at all 5. Poor appetite or overeating: not at all 6. Feeling bad about yourself - or that you are a failure or have let yourself or your family down: not at all 7. Trouble concentrating on things, such as reading the newspaper or watching television: not at all 8. Moving or speaking so slowly that other people could have noticed. Or the opposite - being so fidgety or restless that you have been moving around a lot more than usual: not at all 9. Thoughts that you would be better off or of hurting yourself in some way: not at all Total score: 0 Depression Screening Interpretation: Negative Depression Screening Done: Yes 63584 - PHQ-9 Billing: Yes Source: Developed by Drs. Amandeep Santamaria, Selam Scott, Wojciech Mccall and colleagues, with an educational artem from [employer]. Thrive Questionnaire Date Thrive assessed: 02/05/25 I am a: Patient What is your living situation today?: I have a steady place to live Within the past 12 months, did the food you bought not last and you didn't have the money to get more?: Never true Within the past 12 months, did you worry whether your food would run out before you got money to buy more?: Never true Do you have trouble paying for medicines?: No Do you have trouble getting transportation to medical appointments?: No Do you have trouble paying your heating and electricity bill?: No Do you have trouble taking care of your child, family member or friend?: No Do you have trouble with day-to-day activities such as bathing, preparing meals, shopping, managing finances, etc.?: No Are you currently unemployed and looking for a job?: No Are you interested in more education?: No THRIVE Score: 0 AUDIT C Alcohol Use Questionnaire (AUDIT-C) 1. How often do you have a drink containing alcohol?: Never 3. How often do you have six or more drinks on one occasion?: Never Total Score: 0 Score Reviewed/Action Taken: Yes BRUNO-7 AMB Questionnaire BRUNO-7 Date BRUNO - 7 assessed: 02/05/25 Feeling nervous, anxious, or on edge: 0 = Not at all Not being able to stop or control worryin = Not at all Worrying too much about different things: 0 = Not at all Trouble relaxin = Not at all Being so restless that it is hard to sit still: 0 = Not at all Becoming easily annoyed or irritable: 0 = Not at all Feeling afraid as if something awful might happen: 0 = Not at all Total BRUNO-7 score (0-4 normal; 5-9 mild; 10-14 moderate; 15-21 severe): 0 Source: Developed by Drs. Amandeep Santamaria, Selam Scott, Wojciech Mccall and colleagues, with an educational artem from [employer]. BRUNO-7 Assessment Billing BRUNO-7 Assessment Tool: BRUNO-7 Assessment 97721 Physical exam (Primary Care) Vital Signs: Last Vital Signs Temp 97.6 F 02/05/25 09:22 Pulse 76 02/05/25 09:22 Resp 16 02/05/25 09:22 BP 126/70 02/05/25 09:22 Pulse Ox 99 02/05/25 09:22 Oxygen Delivery Method Room Air 02/05/25 09:22 Care Plan Goal for BP management: <130/80 BMI result Body Mass Index 29.3 BMI Assessment/Plan discussion: High BMI High, discussed plan: lifestyle, weight reduction, dietary, physical activity and alcohol moderation Tobacco/Smoking Status: Tobacco use Status Tobacco use date assessed 02/05/25 02/05/25 09:29 Patient Tobacco Use Status Never used Tobacco 02/05/25 09:29 e-Cigarette/Vaping Use Never Used 02/05/25 09:29 PHQ-9: PHQ-9 Score PHQ-9: Total score 0 02/05/25 09:45 Depression Screening Interpretation: Negative Thrive Assessment: Date of Thrive Assessment Date Thrive assessed 02/05/25 02/05/25 09:29 Results AMB Hemoglobin A1c AMB Hemoglobin A1c 6.1 % Last Edit by VASQUEZ Rodriguez on 02/05/25 09:45 Results Reviewed Results Reviewed: Laboratory Last Values Hgb A1c (Clinic) 6.1 % (4.0-6.0) H 02/05/25 09:41 Coding Level of Care Code Est Pt Level 4 (21383) Complex EM visit Add On G2211 Diagnoses Pure hypercholesterolemia E78.00 Overweight (BMI 25.0-29.9) E66.3 Prediabetes R73.03 Urge urinary incontinence N39.41 Hyperbilirubinemia E80.6 Migraine without status migrainosus, not intractable, unspecified migraine type G43.909 Intractability: not intractable Migraine type: unspecified Status migrainosus presence: without status migrainosus Spondylosis of lumbar spine M47.816 Additional Codes BRUNO-7 Assessment Billing - BRUNO-7 Assessment Tool: BRUNO-7 Assessment 70219 ([id number]) PHQ-9 - 32458 - PHQ-9 Billing: Yes ([id number]) Assessment & Plan Assessment & Plan (1) Pure hypercholesterolemia: Code(s): E78.00 - Pure hypercholesterolemia, unspecified Category: Medical Plan: Patient to continue atorvastatin 10 mg at bedtime. Condition is chronic and stable continue to monitor (2) Overweight (BMI 25.0-29.9): Code(s): E66.3 - Overweight Category: Medical Plan: Patient to trialed diet and exercise. Condition is chronic and stable continue to monitor. (3) Prediabetes: Code(s): R73.03 - Prediabetes Category: Medical Plan: A1c level today 6.1. I explained to the patient that she is a prediabetic. We discussed metformin although patient would like to trial diet and exercise and recheck her A1c in 6 months. At that time if her A1c level continues to be elevated she will be started on metformin 500 mg daily. Patient understands this. Condition is stable continue to monitor. (4) Urge urinary incontinence: Code(s): N39.41 - Urge incontinence Category: Medical Plan: Condition is chronic in stable will continue to monitor. (5) Hyperbilirubinemia: Code(s): E80.6 - Other disorders of bilirubin metabolism Category: Medical Plan: Patient denies any abdominal pain. No jaundice on exam. Condition is chronic and stable continue to monitor. (6) Migraines: Code(s): G43.909 - Migraine, unspecified, not intractable, without status migrainosus Category: Medical Qualifiers: Intractability: not intractable Migraine type: unspecified Status migrainosus presence: without status migrainosus Qualified Code(s): G43.909 - Migraine, unspecified, not intractable, without status migrainosus Plan: Has Motrin and Tylenol. Will send new prescription. Condition is chronic and stable continue to monitor. (7) Spondylosis of lumbar spine: Code(s): M47.816 - Spondylosis without myelopathy or radiculopathy, lumbar region Category: Medical Plan: Patient has Motrin Tylenol. Refill sent. Condition is chronic and stable continue to monitor. Plan Plan Patient was informed and verbally consented to the use of an ambient scribe for clinic note documentation during this visit. 1. Arthritis Continue home exercises, avoid acute stressors. No further imaging needed unless symptoms worsen. 2. Hyperlipidemia Continue atorvastatin and assess lipid panel at next appointment. 3. Prediabetes Advise on reducing carbohydrate intake and increasing physical activity. Discuss metformin commencement if lifestyle changes are insufficient. Orders: Orders AMB Hemoglobin A1c 02/05/25 Z13.9 - Encounter for screening, unspecified Vitamin B12 and Folate 02/06/25 Z00.00 - Encounter for general adult medical examination without abnormal findings Vitamin B1 02/06/25 Z00.00 - Encounter for general adult medical examination without abnormal findings Vitamin D 25-OH Total 02/06/25 Z00.00 - Encounter for general adult medical examination without abnormal findings Magnesium 02/06/25 Z00.00 - Encounter for general adult medical examination without abnormal findings Comprehensive [place]. Panel Fast 02/06/25 Z00.00 - Encounter for general adult medical examination without abnormal findings C Reactive Protein 02/06/25 Z00.00 - Encounter for general adult medical examination without abnormal findings TSH reflex Free T4 02/06/25 Z00.00 - Encounter for general adult medical examination without abnormal findings Complete Blood Count Auto Diff 02/06/25 Z00.00 - Encounter for general adult medical examination without abnormal findings Medications: New acetaminophen (Tylenol) 650 mg (2 x 325 mg) PO Q6H PRN 90 tabs 1RF fever or pain Refilled atorvastatin 10 mg PO BEDTIME 90 tabs 1RF ibuprofen 600 mg PO Q8H PRN 20 tabs 0RF pain M77.9 - Enthesopathy, unspecified Patient Instructions: Patient Instructions - Continue taking atorvastatin as prescribed every night. - Maintain regular exercise routines focusing on back stretching exercises. - Monitor carbohydrate intake, especially reducing bread to help manage prediabetes. - Schedule an eye exam appointment. - Follow up in six months for re-evaluation of A1c and other health parameters. - Call immediately if experiencing any changes in health or increased pain. Scribe Plan - Not visible on output: History of Present Illness The patient is a 54-year-old female presenting for a six-month follow-up. She has a documented history of hyperlipidemia managed with atorvastatin, which she takes consistently at night. The patient also has arthritis, with a specific history of prior trauma and diagnostic imaging that confirmed degenerative changes in the lumbar region. She reports back pain with some relief from home exercises, particularly affecting her lower back and radiating to her right leg. She has a notable history of prediabetes with a previously recorded A1c of 5.9%, now elevated to 6.1%. The patient opts to initially manage this condition through dietary changes, purposeful avoidance of bread, and increased exercise to see if this stabilizes or lowers the A1c before considering metformin therapy. She also indicates hypersensitivity in her gastrointestinal tract when taking medications. 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 - Exercise: Engages in regular home exercises, runs in the afternoon. - Nutrition: Conscious of reducing bread intake to better manage weight and prediabetes. - Functional Status: Able to perform all daily activities independently without assistance. Review of Systems - Musculoskeletal: Reports back pain, particularly lower back pain with radiation to the right leg. - Neurological: Denies numbness or tingling in legs. - Cardiovascular: Denies chest pain or shortness of breath. - Vision/Hearing: Occasionally struggles with vision, requiring regular eye exams. - Gastrointestinal: Denies changes in bowel movements; no report of diarrhea or constipation. Physical Exam Appearance: Alert. Oriented X3. No acute distress. Head: Normal external exam. Normocephalic. Atraumatic. Eyes: Pupils are equal, round, and reactive to light. Extraocular movements intact. Conjunctiva and sclera normal. Eyelids normal. Ears: External auditory canal normal. Tympanic membranes normal. Throat: Pharynx normal. Uvula midline. Moist mucous membranes. Neck: Normal inspection. Neck supple. Full range of motion. No adenopathy. Thyroid Normal. No meningeal signs. No neck mass noted. Cardiovascular: Normal heart rate and rhythm. Heart sound normal. No murmurs noted. Pulses normal throughout. Respiratory: No respiratory distress. Painless inspiration. Breath sounds normal. No wheezes/rales/rhonchi noted. Chest nontender. No accessory muscle usage noted or decreased air movement noted. Abdomen: Soft and nontender. Bowel sounds normal in all 4 quadrants. No distention noted. No organomegaly noted. No visible injury noted. Back: No costovertebral angle tenderness. Full range of motion noted. Reports back pain due to arthritis and disc issues, worse on the left side. Skin: Skin warm and dry. Normal skin color. Normal skin turgor. No rashes/lesions/lacerations noted. Extremities: No lower extremity edema. Extremities exhibit normal range of motion. Extremities nontender. Reports difficulty moving feet. Neuro: Oriented X 3. No motor deficit. No sensory deficit. Reflexes normal. No numbness or tingling down the legs. Results - Labs: A1c of 6.1%; previous A1c was 5.9%. Plan Patient was informed and verbally consented to the use of an ambient scribe for clinic note documentation during this visit. 1. Arthritis Continue home exercises, avoid acute stressors. No further imaging needed unless symptoms worsen. 2. Hyperlipidemia Continue atorvastatin and assess lipid panel at next appointment. 3. Prediabetes Advise on reducing carbohydrate intake and increasing physical activity. Discuss metformin commencement if lifestyle changes are insufficient. Discussion Notes During this visit, I discussed the management of hyperlipidemia, reinforcing the patient's continued use of atorvastatin and monitored lipid levels. For arthritis, I suggested maintaining a consistent exercise regimen to manage symptoms and pain sustainability. We reviewed the patient's prediabetes condition, wherein the patient expressed a preference for dietary management rather than initiating metformin, given her concern for gastrointestinal discomfort due to her occupation. I advised follow-up testing if her A1c levels elevate further and emphasized reducing carbohydrates and increasing physical activity. Scheduled a follow-up consultation in six months to reassess her condition. Patient Instructions - Continue taking atorvastatin as prescribed every night. - Maintain regular exercise routines focusing on back stretching exercises. - Monitor carbohydrate intake, especially reducing bread to help manage prediabetes. - Schedule an eye exam appointment. - Follow up in six months for re-evaluation of A1c and other health parameters. - Call immediately if experiencing any changes in health or increased pain.
[2025-02-05 09:22] VITALS: BP 126/70; PULSE 76; RESP 16; TEMP 36.4; O2SAT 99; BMI 29.3
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
== END 2025-02-05 09:50 | disposition home or self-care (01) ==
PROVIDERS: PCP Internal Medicine; Visit Provider Physician Assistant Medical
DX: E78.00 Pure hypercholesterolemia, unspecified (principal); E66.3 Overweight; R73.03 Prediabetes; N39.41 Urge incontinence; E80.6 Other disorders of bilirubin metabolism; G43.909 Migraine, unspecified, not intractable, without status migrainosus; M47.816 Spondylosis without myelopathy or radiculopathy, lumbar region

== ENCOUNTER → 2025-02-05 09:18 | Outpatient (BNVA) | payer OTHER, SELFPAY | PROVIDERS: PCP Internal Medicine; Visit Provider Physician Assistant Medical | DX: E78.00 Pure hypercholesterolemia, unspecified (principal); E66.3 Overweight; Z68.29 Body mass index [BMI] 29.0-29.9, adult; R73.03 Prediabetes; N39.41 Urge incontinence; E80.6 Other disorders of bilirubin metabolism; G43.909 Migraine, unspecified, not intractable, without status migrainosus; M47.816 Spondylosis without myelopathy or radiculopathy, lumbar region; Z71.3 Dietary counseling and surveillance | CPT/HCPCS: 83036; 96127; 99212 ==

== ENCOUNTER 2025-02-06 09:46 | Outpatient (REF) | payer OTHER, SELFPAY ==
--- OUTSIDE RECORDS SUMMARY | 2025-02-06 09:51 | XMS_ITS | Clinical Summary ---
Author Organization [facility] ity Address [address] [place] [address] Care Team Providers Care Conservation Specialist Name Role Phone Valerie Shi MD Primary [...] Breast cancer risk category Low (<15%) Result [facility] Akbar Dudley MD IMG XR PROCEDURES Final Result * (ABNORMAL) Lipid panel (09/14/2021) [facility] LDL/HDL Ratio 4 0 - 4 HDL 63 >=40 mg/dL LDL Cholesterol 150(A) 0 - 100 mg/dL Blood Venous blood specimen / Unknown Result [facility] Provider LAB BLOOD ORDERABLES Elizabeth l Result * Cervical Cancer Screening: HPV (06/20/2021) [facility] Cervical Cancer Screening: HPV normal,abs tracted Result [facility] Har[facility] Final Result * HIV Screening (06/20/2021) [facility] HIV Screening abstracted Result [facility] Har[facility] Final Result * Hepatitis C Screening (06/20/2021) [facility] Hepatitis C Screening abstracted Result [facility] Final Result * Colonoscopy (09/15/2019) [facility] Colonoscopy no interpretation , abstracted Anatomical Region Laterality Modality Other Result [facility] Final Result from Last 3 Months or Most Recently Relevant to Health Maintenance Care Teams Conservation Specialist Relationship Specialty Start Date End Date Valerie Shi MD PCP - General Internal Medicine 07/02/22
[2025-02-06 10:35] LABS: MANUAL DIFF FLAG NO
[2025-02-06 11:02] LABS: Basophils Percent Auto 0.7 % (0-2); Eosinophils Percent Auto 0.7 % (0-4); Hematocrit 41.1 % (37.0-47.0); Hemoglobin 13.6 g/dl (12.0-16.0); Imm Gran Abs Auto 0.01 X10*3/uL (0.00-0.03); Imm Gran Pct Auto 0.2 % (0.0-0.4); Lymphocytes Absolute Auto 1.8 X10*3/uL (1.2-4.9); Lymphocytes Percent Auto 30.9 % (20-40); Mean Corpuscular HGB Conc 33.1 g/dl (31.0-35.0); Mean Corpuscular Hemoglobin 29.9 pg (27.0-33.0); Mean Corpuscular Volume 90.3 fL (80.0-98.0); Mean Platelet Volume 10.2 fL (9.4-12.3); Monocytes Absolute Auto 0.4 X10*3/uL (0.1-1.2); Monocytes Percent Auto 7.7 % (2-11); Neutrophils Absolute Auto 3.4 x10*3/uL (2.0-8.3); Neutrophils Percent Auto 59.8 % (45-73); Platelet Count 242 X10*3/uL (160-400); Red Blood Count 4.55 X10*6/uL (4.20-5.50); White Blood Count 5.7 X10*3/uL (4.8-10.8)
[2025-02-06 11:22] LABS: Appearance Urine Clear; Color Urine Yellow; Glucose Urine UA Negative (Negative); Leukocyte Esterase Urine Negative (Negative); Nitrite Urine Negative (Negative); UMIC TRIGGER UA YES; Urine Blood Trace (Negative); Urine Ketones Negative (Negative); Urine Protein Negative (Neg-Trace)
[2025-02-06 11:53] LABS: Bacteria Urine None Seen (None Seen); Hyaline Casts Urine 0-2 /LPF (0-2); Squamous Epithelial Cell Urine 0-2 /HPF (0-2); WBC Urine 0-5 /HPF (0-5)
[2025-02-06 12:22] LABS: Alanine Aminotransferase 23 U/L (0-31); Albumin Level 4.3 g/dL (3.5-5.0); Alkaline Phosphatase 73 U/L (39-117); Anion Gap 12 (12-20); Aspartate Amino Transferase 26 U/L (5-31); Bilirubin Direct 0.4 mg/dL (0.0-0.5); Bilirubin Total 1.6 mg/dL (0.0-1.0); Blood Urea Nitrogen 13 mg/dL (9-16); C Reactive Protein < 0.04 mg/dL (< or = 0.50); Calcium 9.4 mg/dL (8.4-10.2); Carbon Dioxide 27 mmol/L (22-29); Chloride 107 mmol/L (96-108); Cholesterol 203 mg/dL (<200); Estimated Glomerular Filt Rate > 60; Glucose Fasting 102 mg/dL (60-99); HDL Cholesterol 67 mg/dL (>40); LDL Cholesterol Calculated 110 mg/dL (<100); Magnesium 2.1 mg/dL (1.6-2.6); Sodium 142 mmol/L (135-145); Total Protein 7.6 g/dL (6.5-8.0); Triglycerides 130 mg/dL (<150); Vitamin D 25-OH Total 68.7 ng/mL (>30)
[2025-02-06 12:35] LABS: Folate 15.7 ng/mL (> or = 4.0); Vitamin B12 946 pg/mL (200-900)
[2025-02-14 15:12] LABS: Vitamin B1 18 nmol/L (8-30)
== END 2025-02-06 09:47 | disposition home or self-care (01) ==
LOC: HO.LAB 09:46
PROVIDERS: PCP Internal Medicine; Visit Provider Physician Assistant Medical
DX: Z00.00 Encounter for general adult medical examination without abnormal findings (principal); E78.00 Pure hypercholesterolemia, unspecified
CPT/HCPCS: 36415; 80053; 80061; 80076; 81001; 82248; 82306; 82607; 82746; 83735; 84425; 84443; 85025; 86140

== ENCOUNTER 2025-08-12 09:36 | Outpatient (AMB) | payer OTHER, SELFPAY ==
--- NOTE | 2025-08-12 09:44 | MHC.PC.OV ---
Vital Signs 08/12/25 09:45 Height 5 ft 2 in Weight 159 lb 6 oz BMI 29.1 BP 110/68 Blood Pressure Location Lt brachial Position Sitting Pulse 65 Pulse Source Pulse Oximeter Temp 97.3 F Temp Source Temporal Artery Scan Pulse Oximetry (%) 95 Oxygen Delivery Method Room Air Intake Visit Reasons: 6 month f/u Intake Note: Patient is here to follow up on Hypercholesterolemia, Back pain, Migraine. Dental Ceramist Assistant Required: No Casing Worker: Not Required per policy Accompanied by: Self / Same As Patient Allergies No Known Allergies Allergy (Verified 08/12/25 09:44) Tobacco use date assessed: 08/12/25 Dental Screening Dental Screen Date: 08/12/25 Did you have a dental visit in the last 12 months?: No Did you have a dental problem in the last 6 months where you did not have access to dental care?: No Was dental information given to patient?: No [facility] Medical History (Updated 02/05/25 @ 10:05 by Melba Burns PA-C) History of mammogram (~08/05/24) Spondylosis of lumbar spine Prediabetes Overweight (BMI 25.0-29.9) Pure hypercholesterolemia Hypercholesterolemia Back pain Migraine Obesity Surgical History History of carpal tunnel release History of incisional hernia repair History of colonoscopy (~09/15/19) History of cholecystectomy H/O abdominal surgery Family History Mother No problems noted. Father Hypertension Social History Housing: Apartment Alcohol intake: never Patient Tobacco Use Status: Never used Tobacco e-Cigarette/Vaping Use: Never Used Second Hand Smoke Exposure: No service: No Current occupational status: employed Current occupation: [employer]ER, right hand dominant Cognitive needs: No Hearing needs: No Vision needs: Yes (glasses ) Questionnaire PHQ-9 Over the last 2 weeks, how often have you been bothered by any of the following problems? 1. Little interest or pleasure in doing things: not at all 2. Feeling down, depressed, or hopeless: not at all 3. Trouble falling or staying asleep, or sleeping too much: several days 4. Feeling tired or having little energy: several days 5. Poor appetite or overeating: not at all 6. Feeling bad about yourself - or that you are a failure or have let yourself or your family down: several days 7. Trouble concentrating on things, such as reading the newspaper or watching television: several days 8. Moving or speaking so slowly that other people could have noticed. Or the opposite - being so fidgety or restless that you have been moving around a lot more than usual: not at all 9. Thoughts that you would be better off or of hurting yourself in some way: not at all Total score: 4 Depression Screening Interpretation: Positive Depression Screening Done: Yes Source: Developed by Drs. Amandeep Santamaria, Selam Scott, Wojciech Mccall and colleagues, with an educational artem from [employer]. Thrive Questionnaire Date Thrive assessed: 08/11/25 I am a: Patient What is your living situation today?: I have a steady place to live Within the past 12 months, did the food you bought not last and you didn't have the money to get more?: Sometimes True Within the past 12 months, did you worry whether your food would run out before you got money to buy more?: Sometimes True Do you have trouble paying for medicines?: No Do you have trouble getting transportation to medical appointments?: No Do you have trouble paying your heating and electricity bill?: No Do you have trouble taking care of your child, family member or friend?: No Do you have trouble with day-to-day activities such as bathing, preparing meals, shopping, managing finances, etc.?: No Are you currently unemployed and looking for a job?: No Are you interested in more education?: No Please select the resources that you would like help with: None Currently or been in a relationship where the following occur: No concerns reported THRIVE Score: 2 AUDIT C Alcohol Use Questionnaire (AUDIT-C) 1. How often do you have a drink containing alcohol?: Monthly or less 2. How many drinks containing alcohol do you have on a typical day when you are drinking?: 1 or 2 3. How often do you have six or more drinks on one occasion?: Never Total Score: 1 BRUNO-7 AMB Questionnaire BRUNO-7 Date BRUNO - 7 assessed: 02/05/25 Feeling nervous, anxious, or on edge: 1 = Several days Not being able to stop or control worryin = Several days Worrying too much about different things: 1 = Several days Trouble relaxin = Not at all Being so restless that it is hard to sit still: 0 = Not at all Becoming easily annoyed or irritable: 0 = Not at all Feeling afraid as if something awful might happen: 0 = Not at all Total BRUNO-7 score (0-4 normal; 5-9 mild; 10-14 moderate; 15-21 severe): 3 Source: Developed by Drs. Amandeep Santamaria, Selam Scott, Wojciech Mccall and colleagues, with an educational artem from [employer]. Physical exam (Primary Care) Vital Signs: Last Vital Signs Temp 97.3 F 08/12/25 09:45 Pulse 65 08/12/25 09:45 BP 110/68 08/12/25 09:45 Pulse Ox 95 08/12/25 09:45 Oxygen Delivery Method Room Air 08/12/25 09:45 BMI result Body Mass Index 29.1 Tobacco/Smoking Status: Tobacco use Status Tobacco use date assessed 08/12/25 08/12/25 09:49 Patient Tobacco Use Status Never used Tobacco 08/12/25 09:49 e-Cigarette/Vaping Use Never Used 08/12/25 09:49 PHQ-9: PHQ-9 Score PHQ-9: Total score 4 08/12/25 09:49 Depression Screening Interpretation: Positive Thrive Assessment: Date of Thrive Assessment Date Thrive assessed 08/11/25 08/12/25 09:49 Currently or been in a relationship where the following occur: No concerns reported Coding Level of Care Code Est Pt Level 4 (36317) Complex EM visit Add On G2211 Diagnoses Hypercholesterolemia E78.00 Prediabetes R73.03 Assessment & Plan Assessment & Plan (1) Hypercholesterolemia: Code(s): E78.00 - Pure hypercholesterolemia, unspecified Category: Medical Plan: BW ordered. Will follow up with results (2) Prediabetes: Code(s): R73.03 - Prediabetes Category: Medical Plan: History of Present Illness - The patient is a 55-year-old female presenting with a routine check-up and management of prediabetes. - Prediabetes: Previously identified with an A1c of 6.1, requiring monitoring. - Toe injury: Reported hitting her toe, leading to discoloration and occasional nail loss. - Preventative care: Up to date with mammogram and had a colonoscopy a couple of years ago. 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 - Substance use: Denies smoking. Review of Systems - Endocrine: Denies any new symptoms related to diabetes. - Musculoskeletal: Reports toe injury with discoloration and occasional nail loss. Physical Exam General: Cooperative and healthy appearing Nutritional Appearance: Well nourished Orientation/consciousness: Patient oriented x3 Limitations: No limitations Head: Normal to inspection General: Appearance normal, both eyes and all related structures Neck: Normal visual inspection Chest: Normal palpation of entire chest wall Respiratory: N ormal respiratory effort Neurology: Patient oriented x3, no smoking Results Plan 1. Prediabetes - Plan to monitor A1c levels and lifestyle modifications discussed. 2. Toe Injury With Subungual Hematoma - Advised that the discoloration may take time to resolve and a new nail will grow if the nail falls off. Discussion Notes During the visit, we discussed the importance of monitoring A1c levels due to prediabetes and the need for lifestyle modifications. I advised the patient that the discoloration from the toe injury may take time to resolve and that a new nail will grow if the nail falls off. We also reviewed her preventative care measures, including her mammogram and colonoscopy status. Patient Instructions - Continue taking cholesterol medication daily. - Schedule and complete blood work as discussed. - Monitor blood sugar levels and maintain a healthy lifestyle to manage prediabetes. - Follow up in six months for routine check-up. Orders: Orders Lipid Panel Today E78.00 - Pure hypercholesterolemia, unspecified, R73.03 - Prediabetes Liver Panel Today E78.00 - Pure hypercholesterolemia, unspecified, R73.03 - Prediabetes UA and rflx microscopic Today E78.00 - Pure hypercholesterolemia, unspecified, R73.03 - Prediabetes Basic Metabolic Panel Today E78.00 - Pure hypercholesterolemia, unspecified, R73.03 - Prediabetes Complete Blood Count no Diff Today E78.00 - Pure hypercholesterolemia, unspecified, R73.03 - Prediabetes Thyroid Stimulating Hormone Today E78.00 - Pure hypercholesterolemia, unspecified, R73.03 - Prediabetes Hemoglobin A1c Today E78.00 - Pure hypercholesterolemia, unspecified, R73.03 - Prediabetes
[2025-08-12 09:45] VITALS: BP 110/68; PULSE 65; TEMP 36.3; O2SAT 95; BMI 29.1
--- OUTSIDE RECORDS SUMMARY | 2025-08-12 11:16 | XMS_ITS | Clinical Summary ---
Author Organization [facility] ity Address [address] [place] [address] Care Team Providers Care Water Taxi Operator Name Role Phone Valerie Shi MD Primary [...] TUBAL LIGATION BREAST SURGERY 2010 Left PROCEDURE: [place] UNLISTED PROCEDURE BREAST; COMMENT: neg BREAST BIOPSY [...] 2018 Zoster Vaccines (1 of 2) 2018 Social Influencers of Health Screening 11/10/2022 Breast Cancer Screening 02/01/2024 02/01/20, 01/25/2021, 08/07/2019, Additional history exists Depression Screening 12/02/2024 DTaP,Tdap,and Td Vaccines (3 - Td or Tdap) 06/03/2025 06/03/2015, 03/21/2004 COVID-19 Vaccine (2024- season) 2025 11/14/2021, 04/04/2021 Influenza Vaccine (#1) 2025 Cervical Cancer Screening: HPV 06/20/2026 06/20/2021 Cholesterol [...] age to complete this topic Meningococcal B Vaccine Aged Out No l onger eligible based on patient's age to complete [...] neoplasm of breast LIPID PANEL Routine 09/14/2021 [facility] HPV Routine 06/20/2021 HEPATITIS C SCREENING Routine [...] % Breast cancer risk category Low (<15%) Akbar Dudley MD IMG XR PROCEDURES Final Result * (ABNORMAL) Lipid panel (09/14/2021) [facility] LDL/HDL Ratio 4 0 - 4 HDL 63 >=40 mg/dL LDL Cholesterol 150(A) 0 - 100 mg/dL Blood Venous blood specimen / Unknown Result [facility] Provider LAB BLOOD ORDERABLES Elizabeth l Result * Cervical Cancer Screening: HPV (06/20/2021) [facility] Cervical Cancer Screening: HPV normal,abs tracted Result [facility] Provider HEALTH MAINTENANCE Final Result * HIV Screening (06/20/2021) [facility] HIV Screening abstracted Result [facility] Provider HEALTH MAINTENANCE Final Result * Hepatitis C Screening (06/20/2021) [facility] Hepatitis C Screening abstracted Result [facility] Provider HEALTH MAINTENANCE Final Result * Colonoscopy (09/15/2019) [facility] Colonoscopy no interpretation , abstracted Anatomical Region Laterality Modality Other Result [facility] Provider HEALTH MAINTENANCE Final Result from Last 3 Months or Most Recently Relevant to Health Maintenance Care Teams Water Taxi Operator Relationship Specialty Start Date End Date Valerie Shi MD PCP - General Internal Medicine 07/02/22
== END 2025-08-12 10:14 | disposition home or self-care (01) ==
LOC: HO.HMCH 09:36
PROVIDERS: PCP Internal Medicine; Visit Provider Internal Medicine
DX: E78.00 Pure hypercholesterolemia, unspecified (principal); R73.03 Prediabetes

== ENCOUNTER 2025-08-12 15:11 | Outpatient (REF) | payer OTHER, SELFPAY ==
--- NOTE | ~2025-08-12 | MM_ITS ---
EXAMINATION: MM SCREENING DIGITAL BREAST TOMOSYNTHESIS, BILATERAL CLINICAL INFORMATION: Screening. Asymptomatic. COMPARISON: Mammography: Comparison is made with available priors TECHNIQUE: Digital breast mammography with tomosynthesis is performed in both the craniocaudal and mediolateral oblique views along with computer-aided detection (CAD). FINDINGS: The breasts are heterogeneously dense, which may obscure small masses (ACR BI-RADS breast composition Category c). There are no significant masses, abnormal calcifications, or other abnormalities. MM/MM tomosynthesis screening BI IMPRESSION: No mammographic evidence of malignancy. ASSESSMENT: BI-RADS BI-RADS 1 - Negative RECOMMENDATION: Routine annual mammography screening. 1 year F/U This examination should not preclude the clinical evaluation of a suspicious palpable abnormality. This patient's information was entered into a reminder system with a target due date for their next mammogram. Electronically signed by: Carol He DO 08/17/2025 11:59 AM EDT
[2025-08-12 17:12] LABS: Hematocrit 38.4 % (37.0-47.0); Hemoglobin 12.7 g/dl (12.0-16.0); Mean Corpuscular HGB Conc 33.1 g/dl (31.0-35.0); Mean Corpuscular Hemoglobin 29.9 pg (27.0-33.0); Mean Corpuscular Volume 90.4 fL (80.0-98.0); NRBC Abs Auto 0.000 X10*3/uL (0.0-0.012); NRBC Pct Auto 0.0 /100WBC (0.0-0.2); Platelet Count 247 X10*3/uL (160-400); Red Blood Count 4.25 X10*6/uL (4.20-5.50); White Blood Count 8.2 X10*3/uL (4.8-10.8)
[2025-08-12 17:19] LABS: Appearance Urine Clear; Glucose Urine UA Negative (Negative); PH 5.5 (5.0-9.0); Specific Gravity - Urine 1.015 (1.005-1.025); UMIC TRIGGER UA YES
[2025-08-12 17:23] LABS: Total Hemoglobin (HGBA1C) 3333.7065 umol/L
[2025-08-12 18:10] LABS: Alanine Aminotransferase 20 U/L (0-31); Albumin Level 4.4 g/dL (3.5-5.0); Alkaline Phosphatase 76 U/L (39-117); Anion Gap 11 (12-20); Aspartate Amino Transferase 24 U/L (5-31); Blood Urea Nitrogen 14 mg/dL (9-16); Calcium 9.0 mg/dL (8.4-10.2); Carbon Dioxide 28 mmol/L (22-29); Chloride 107 mmol/L (96-108); Cholesterol 170 mg/dL (<200); Estimated Glomerular Filt Rate > 60; HDL Cholesterol 55 mg/dL (>40); Potassium 3.7 mmol/L (3.3-5.1); Sodium 142 mmol/L (135-145); Total Protein 7.2 g/dL (6.5-8.0); Triglycerides 167 mg/dL (<150)
[2025-08-12 18:32] LABS: Thyroid Stimulating Hormone 1.13 uIU/mL (0.32-4.0)
== END 2025-08-12 15:12 | disposition home or self-care (01) ==
LOC: HO.MAMMO 15:11
PROVIDERS: PCP Internal Medicine; Visit Provider Internal Medicine
DX: R73.03 Prediabetes (principal); E78.00 Pure hypercholesterolemia, unspecified
CPT/HCPCS: 36415; 77063; 77067; 80048; 80061; 80076; 81001; 83036; 84443; 85027; 99212

== ENCOUNTER → 2025-08-12 15:27 | Outpatient (BNV) | payer OTHER, SELFPAY | PROVIDERS: PCP Internal Medicine; Visit Provider Internal Medicine | DX: Z12.31 Encounter for screening mammogram for malignant neoplasm of breast (principal) | CPT/HCPCS: 77063; 77067 ==

== ENCOUNTER 2025-09-22 09:53 | Outpatient (AMB) | payer OTHER, SELFPAY ==
[2025-09-22 10:11] VITALS: BP 100/60; PULSE 61; TEMP 36.3; O2SAT 99; BMI 29.3
--- NOTE | 2025-09-22 10:11 | A.OFFPC_ITS ---
Vital Signs 09/22/25 10:11 Height 5 ft 2 in Weight 160 lb 4 oz BMI 29.3 BP 100/60 Blood Pressure Location Lt brachial Position Sitting Pulse 61 Pulse Source Pulse Oximeter Temp 97.3 F Temp Source Temporal Artery Scan Pulse Oximetry (%) 99 Oxygen Delivery Method Room Air Intake Visit Reasons: Annual Exam Intake Note: Patient is here today for a physical. 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 Social Worker: Not Required per policy Accompanied by: Self / Same As Patient Allergies No Known Allergies Allergy (Verified 09/22/25 10:11) Tobacco use date assessed: 09/22/25 Dental Screening Dental Screen Date: 08/12/25 [facility] Medical History (Updated 02/05/25 @ 10:05 by Melba Burns PA-C) History of mammogram (~08/05/24) Spondylosis of lumbar spine Prediabetes Overweight (BMI 25.0-29.9) Pure hypercholesterolemia Hypercholesterolemia Back pain Migraine Obesity Surgical History History of carpal tunnel release History of incisional hernia repair History of colonoscopy (~09/15/19) History of cholecystectomy H/O abdominal surgery Family History Mother No problems noted. 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 Cognitive needs: No Hearing needs: No Vision needs: Yes (glasses ) Questionnaire Thrive Questionnaire Date Thrive assessed: 08/11/25 I am a: Patient What is your living situation today?: I have a steady place to live Within the past 12 months, did the food you bought not last and you didn't have the money to get more?: Sometimes True Within the past 12 months, did you worry whether your food would run out before you got money to buy more?: Sometimes True Do you have trouble paying for medicines?: No Do you have trouble getting transportation to medical appointments?: No Do you have trouble paying your heating and electricity bill?: No Do you have trouble taking care of your child, family member or friend?: No Do you have trouble with day-to-day activities such as bathing, preparing meals, shopping, managing finances, etc.?: No Are you currently unemployed and looking for a job?: No Are you interested in more education?: No Please select the resources that you would like help with: None Currently or been in a relationship where the following occur: No concerns reported THRIVE Score: 2 BRUNO-7 AMB Questionnaire BRUNO-7 Date BRUNO - 7 assessed: 02/05/25 Source: Developed by Drs. Amandeep Santamaria, Selam Scott, Wojciech Mccall and colleagues, with an educational artem from [employer]. Physical exam (Primary Care) Vital Signs: Last Vital Signs Temp 97.3 F 09/22/25 10:11 Pulse 61 09/22/25 10:11 BP 100/60 09/22/25 10:11 Pulse Ox 99 09/22/25 10:11 Oxygen Delivery Method Room Air 09/22/25 10:11 BMI result Body Mass Index 29.3 Tobacco/Smoking Status: Tobacco use Status Tobacco use date assessed 09/22/25 09/22/25 10:13 Patient Tobacco Use Status Never used Tobacco 09/22/25 10:13 e-Cigarette/Vaping Use Never Used 09/22/25 10:13 Thrive Assessment: Date of Thrive Assessment Date Thrive assessed 08/11/25 09/22/25 10:13 Currently or been in a relationship where the following occur: No concerns reported Coding Level of Care Code Est Pt Prev Care 40-64y(74623) Diagnoses Annual physical exam Z00.00 Assessment & Plan Assessment & Plan (1) Annual physical exam: Code(s): Z00.00 - Encounter for general adult medical examination without abnormal findings Plan: History of Present Illness - The patient is a 55-year-old female presenting for an annual physical exam. - She experienced a stomach bug with diarrhea earlier in the week, which has resolved. - Her blood pressure was noted to be low at 100/60 mmHg, but this was not considered problematic. - She is undergoing menopause and reports urinary incontinence. - Recent preventative screenings include a normal mammogram and colonoscopy. - A bone density test is planned to evaluate for osteoporosis. 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 - Exercise: Attends gym regularly, specifically [employer]. - Substance Use: Denies smoking and alcohol consumption. Review of Systems - Gastrointestinal: Reports resolved diarrhea from a stomach bug earlier in the week. - Cardiovascular: Denies any concerns despite low blood pressure reading. - Genitourinary: Reports urinary incontinence with leakage when holding urine too long. - Neurological: Denies any issues with hearing or driving at night. Physical Exam General: Cooperative and healthy appearing Nutritional Appearance: Well nourished Orientation/consciousness: Patient oriented x3 Limitations: No limitations Head: Normal to inspection General: Appearance normal, both eyes and all related structures Neck: Normal visual inspection Chest: Normal palpation of entire chest wall Respiratory: Clear upon auscultation ormal respiratory effort Neurology: Patient oriented x3 Results - Labs: Blood work from August was normal, including thyroid function. - Imaging: Recent mammogram was normal. - Procedures: Colonoscopy was up to date and normal. Plan - A bone density test will be conducted to evaluate for osteoporosis related to menopause. - A gynecological exam will be scheduled to address urinary incontinence and other female health issues. - The patient was offered a flu shot, but she declined due to previous adverse reactions. Discussion Notes During the visit, I discussed the importance of preventative care, including the need for a bone density test due to menopause and a gynecological exam for urinary incontinence. We also talked about the flu shot, and I explained that while it may cause mild illness, it prevents severe flu. The patient decided against receiving the flu shot today. Patient Instructions - Schedule and complete the bone density test as planned. - Attend the scheduled gynecological exam for further evaluation. - Consider the benefits of the flu shot and decide if you wish to receive it in the future. Medications: Refilled ibuprofen 600 mg PO Q8H PRN 20 tabs 0RF pain M77.9 - Enthesopathy, unspecified
--- OUTSIDE RECORDS SUMMARY | 2025-09-22 11:55 | XMS_ITS | Clinical Summary ---
Author Organization [facility] ity Address [address] [place] [address] Care Team Providers Care Quality Internship Name Role Phone Valerie Shi MD Primary [...] elevated 05/08 IMO update Headache 03/06/2006 Immunizations Immunization Administration Dates Next Due Moderna SARS-CoV-2 COVID-19, mRNA, LNP-S, preservative free 11/14/2021 PPD Test 09/16/2020,09/14/2020,09/12/2012 Td, Unspecified 03/21/2004 Tdap Tetanus diptheria acell ular pertussis (Boostrix; Adacel) 7yo and older 06/03/2015 Surgical History Surgery Date Site/Laterality Comments CHOLECYSTECTOMY PROCEDURE: HISTORICAL CHOLECYSTECTOMY TUBAL LIGATION PROCEDURE: HISTORICAL TUBAL LIGATION BREAST SURGERY 2010 Left PROCEDURE: ME UNLISTED PROCEDURE BREAST; COMMENT: neg BREAST BIOPSY [...] 09/14/2020 Colorectal Cancer Screening: Colonoscopy 09/15/2029 09/15/2019 RSV Immunization Adult Patients (1 - 1-dose 75+ series) 2043 HIV Screening Completed 06/20/2021 Hepatitis C Screening [...] Breast cancer risk category Low (<15%) Result [facility] Akbar Dudley MD IMG XR PROCEDURES Final Result * (ABNORMAL) Lipid panel (09/14/2021) [facility] LDL/HDL Ratio 4 0 - 4 HDL 63 >=40 mg/dL LDL Cholesterol 150(A) 0 - 100 mg/dL Blood Venous blood specimen / Unknown Result [facility] Provider LAB BLOOD ORDERABLES Elizabeth l Result * Cervical Cancer Screening: HPV (06/20/2021) [facility] Cervical Cancer Screening: HPV normal,abs tracted Result [facility] Provider HEALTH MAINTENANCE Final Result * HIV Screening (06/20/2021) [facility] HIV Screening abstracted Result [facility] Provider HEALTH MAINTENANCE Final Result * Hepatitis C Screening (06/20/2021) [facility] Hepatitis C Screening abstracted Result [facility] Provider HEALTH MAINTENANCE Final Result * Colonoscopy (09/15/2019) [facility] Colonoscopy no interpretation , abstracted Anatomical Region Laterality Modality Other Result [facility] Provider HEALTH MAINTENANCE Final Result from Last 3 Months or Most Recently Relevant to Health Maintenance Care Teams Quality Internship Relationship Specialty Start Date End Date Valerie Shi MD PCP - General Internal Medicine 07/02/22
== END 2025-09-22 10:35 | disposition home or self-care (01) ==
LOC: HO.HMCH 09:54
PROVIDERS: Visit Provider Internal Medicine
DX: Z00.00 Encounter for general adult medical examination without abnormal findings (principal)

== ENCOUNTER → 2025-09-22 09:53 | Outpatient (BNVA) | payer OTHER, SELFPAY | PROVIDERS: Visit Provider Internal Medicine | DX: Z00.00 Encounter for general adult medical examination without abnormal findings (principal); R32 Unspecified urinary incontinence; M77.9 Enthesopathy, unspecified; Z78.0 Asymptomatic menopausal state | CPT/HCPCS: 99396 ==